=== PATIENT | female | born 1965 | race Caucasian/White ===

== ENCOUNTER 2019-10-18 16:56 | Emergency (ER) | payer OTHER, SELFPAY ==
--- NOTE | ~2019-10-18 | CT_ITS ---
EXAMINATION: CTA chest PE protocol DATE: 10/18/2019 20:58 INDICATION: Shortness of breath TECHNIQUE: Computed tomography angiography (CTA) of the chest was performed with 100 mL Omnipaque-350 intravenous contrast timed to evaluate the pulmonary arteries. Coronal maximum intensity projection 3D-reconstructions were created by the technologist. The dose-length product (DLP) was 735.48 mGy-cm. Automated exposure control and iterative reconstruction technique were employed. COMPARISON: None. FINDINGS: The pulmonary arteries are well-opacified. No pulmonary embolism is identified. There are p atchy bilateral airspace opacities. No pleural effusion or pneumothorax is identified. No pathologica lly enlarged thoracic lymph nodes are identified. The heart size is normal. There is mild thoracic sp ondylosis. IMPRESSION: 1. No pulmonary embolism identified. 2. Patchy bilateral airspace opacities which may reflect atelectasis or pneumonia. Reviewed, dictated and finalized at location A. IMPRESSION: 1. No pulmonary embolism identified. 2. Patchy bilateral airspace opacities which may reflect atelectasis or pneumon ia.
--- NOTE | ~2019-10-18 | XR_ITS ---
EXAMINATION: XR chest 2V DATE: 10/18/2019 18:30 INDICATION: Mid chest pain and shortness of breath TECHNIQUE: AP and lateral views of the chest are obtained. COMPARISON: 01/07/2019 FINDINGS: The lungs are free of acute opacities. There is no pleural effusion or pneumothorax. The ca rdiomediastinal silhouette is normal. There is moderate thoracic spondylosis. IMPRESSION: 1. No acute cardiopulmonary abnormality. Reviewed, dictated and finalized at location A.
--- NOTE | 2019-10-18 17:03 | ECG_ITS ---
Measurements Intervals [place] Rate: 70 P: 127 RI: 167 QRS: -18 QRSD: 95 T: -29 QT: 391 QTc: 422 Interpretive Statements SINUS OR ECTOPIC ATRIAL RHYTHM LOW QRS VOLTAGE- PRECORDIAL LEADS INCOMPLETE RIGHT BUNDLE BRANCH BLOCK T WAVE ABNORMALITY IN INFERIOR LEADS- CONSIDER ISCHEMIA ABNORMAL ECG Electronically Signed On 10-18-2019 20:54:46 CDT by Tad Cardenas D.O.
[2019-10-18 17:04] VITALS: BP 114/82; PULSE 68; RESP 18; TEMP 36.6; O2SAT 97
[2019-10-18 17:23] LABS: Basophils Percent Auto 0.4 % (0.2-1.2); Eosinophils Absolute Auto 0.1 K/mm3 (0-0.3); Eosinophils Percent Auto 1.5 % (0-4.4); Hematocrit 40.1 % (37.0-47.0); Immature Granulocyte Absolute 0.03 K/mm3 (0.00-0.031); Immature Granulocyte Percent A 0.4 % (0-0.5); Lymphocytes Absolute Auto 1.71 K/mm3 (0.9-3.2); Lymphocytes Percent Auto 21.5 % (18.3-44.2); Mean Corpuscular HGB Conc 34.9 g/dl (32-36); Mean Corpuscular Hemoglobin 29.7 pg (26-34); Mean Corpuscular Volume 85.1 fl (80-100); Mean Platelet Volume 10.5 fl (7.4-10.4); Monocytes Absolute Auto 0.5 K/mm3 (0.1-0.6); Neutrophils Absolute Auto 5.6 K/mm3 (1.3-6.7); Neutrophils Percent Auto 70.2 % (45.5-73.1); Platelet Count Result 278 k/mm3 (150-375); Red Blood Count 4.71 M/mm3 (4.2-5.4); Red Cell Distribution Width 12.5 % (11.5-14.5)
[2019-10-18 17:34] LABS: Anion Gap 12.1 mmol/L (7-16); Blood Urea Nitrogen 13 mg/dL (7-17); Calcium 9.9 mg/dL (8.4-10.2); Carbon Dioxide 27 mmol/L (22-30); Chloride 103 mmol/L (98-107); Estimated CRCL calculation 106 ml/min; Estimated Glomerular Filt Rate > 60; Glucose 124 mg/dL (65-105); Potassium 3.1 mmol/L (3.4-5.0); Sodium 139 mmol/L (137-145)
[2019-10-18 17:38] LABS: INR 0.9; Prothrombin Time 11.9 Seconds (11.1-14.7)
[2019-10-18 17:39] LABS: Partial Thromboplastin Time 24.3 SECONDS (22.3-36.8)
[2019-10-18 17:46] LABS: Troponin I < 0.012 ng/mL (0.000-0.034)
--- NOTE | 2019-10-18 19:03 | ED.CHESTPAIN ---
HPI - Chest Pain General Chief Complaint: Chest Pain Stated Complaint: Chest Pain, SOB Time Seen by Provider: 10/18/19 19:00 Source: patient Mode of arrival: ambulatory Limitations: no limitations History of Present Illness HPI narrative: Patient is a 54-year-old female who presents for evaluation of shortness of breath. Patient with recent lower extremity surgery by Dr. Pierre to remove bone spurs on her foot, has been on prophylactic anticoagulation but presents with 3-day history of worsening dyspnea. Patient denies fever, chills, cough or congestion. She denies chest pain. She states that she feels as if her throat is closing and cannot breathe. She denies cough or hemoptysis. Patient does not smoke. She has been compliant with her other medications. Patient does have a history of anxiety and panic attacks. Related Data Home Medications Medication Instructions Recorded Confirmed amitriptyline 25 mg tablet 25 mg PO ONCE 03/30/19 azelastine 0.15 % (205.5 mcg) 205.5 mcg NASAL DAILY 03/30/19 nasal spray levocetirizine 5 mg tablet 5 mg PO DAILY 03/30/19 doxycycline hyclate 20 mg tablet 20 mg PO Q12H 05/29/19 enoxaparin 10/18/19 Allergies Allergy/AdvReac Type Severity Reaction Status Date / Time lisinopril Allergy Mild Cough Verified 04/17/19 13:10 Review of Systems Review of Systems: Narrative: CONSTITUTIONAL: Denies fever, chills, or sweats. EYES: Denies visual changes, redness, or discharge. ENT: Denies rhinorrhea, congestion, sore throat, or otalgia. CARDIOVASCULAR: Denies chest pain, reports palpitations RESPIRATORY: Reports dyspnea, denies cough GASTROINTESTINAL: Denies abdominal pain, nausea, vomiting, or diarrhea. GENITOURINARY: Denies dysuria or hematuria. SKIN: Denies rash or itching. MUSCULOSKELETAL: Denies back pain, joint pain, or myalgia. NEUROLOGIC: Denies headache, numbness, or weakness. PSYCHIATRIC: Reports anxiety PMFSH Surgical History Surgical History (Updated 10/18/19 @ 19:34 by Tanya De Santiago MD) S/P hemorrhoidectomy Family History Family History (Updated 04/05/17 @ 12:06 by DOCTOR UNKNOWN) Mother Family history of blood dyscrasia Hypertension Family history of malignant neoplasm of kidney Cerebrovascular accident Sibling Family history of blood dyscrasia Father Hypertension Other Family history of allergic disorder Family history of arthritis Family history of cardiovascular disease Family history of malignant neoplasm Social History Social History (Reviewed 05/29/19 @ 13:00 by Anju Nobles [facility]) Smoking status: Never smoker Second hand tobacco smoke exposure: No Alcohol intake: current Substance use: never Substance use type: does not use Gender identity (if verbalized by the patient): Female Exam Narrative: Exam Narrative: GENERAL: Awake, alert, conversant, anxious appearing HEAD: Normocephalic, atraumatic. EYES: PERRLA and EOMI. ENT: Nares clear, no rhinorrhea or epistaxis. Mucous membranes moist. NECK: Supple. CHEST: Mild tachypnea, no respiratory distress, breathing even and non labored HEART: Regular rate, sinus rhythm ABDOMEN:Non distended, non tender EXTREMITIES: Normal range of motion. Splinting to right lower extremity. SKIN: Warm, dry, no rash. NEURO:No focal deficits. Alert and oriented x3 Course Vital Signs Vital signs: Vital Signs Temperature 36.6 C 10/18/19 17:04 Pulse Rate 68 10/18/19 17:04 Respiratory Rate 18 10/18/19 17:04 Blood Pressure 114/82 10/18/19 17:04 Pulse Oximetry 97 10/18/19 17:04 Temperature 36.6 C 10/18/19 17:04 Pulse Rate 68 10/18/19 17:04 Respiratory Rate 18 10/18/19 17:04 Blood Pressure 114/82 10/18/19 17:04 Pulse Oximetry 97 10/18/19 17:04 MDM - Chest Pain MDM Narrative Medical decision making narrative: Patient presented for shortness of breath, at the time of initial assessment ABCs are intact and vital signs are stable. Initial troponin i
[2019-10-18 20:43] LABS: D Dimer 0.48 ug/mL (<0.48)
[2019-10-18 21:01] LABS: NT Pro B Type Natriuretic Pept 221 PG/ML (5-100)
[2019-10-18 21:04] LABS: Troponin I < 0.012 ng/mL (0.000-0.034)
[2019-10-21 03:23] LABS: SARS-CoV-2 RNA PCR Negative
== END 2019-10-18 22:35 | disposition home or self-care (01) ==
PROVIDERS: Emergency Medicine; Emergency Provider Emergency Medicine; PCP Family Medicine
DX: J18.9 Pneumonia, unspecified organism (principal); Z20.828 Contact with and (suspected) exposure to other viral communicable diseases; Z98.890 Other specified postprocedural states
CPT/HCPCS: 36415; 71046; 71275; 80048; 83880; 84484; 85025; 85380; 85610; 85730; 87635; 93005; 96374; 99284; C9803; J2060; Q9967; U0003

== ENCOUNTER 2019-11-10 00:55 | Outpatient (CLI) | payer OTHER, SELFPAY ==
[2019-11-10 18:53] LABS: SARS-CoV-2 RNA PCR Negative
== END 2019-11-10 00:56 | disposition home or self-care (01) ==
LOC: ANHCOVIDDT 00:55
PROVIDERS: PCP Family Medicine; Visit Provider Internal Medicine Gastroenterology
DX: Z01.812 Encounter for preprocedural laboratory examination (principal); Z20.828 Contact with and (suspected) exposure to other viral communicable diseases
CPT/HCPCS: 87635; C9803; U0003

== ENCOUNTER 2019-11-12 01:11 | Day surgery (SDC) | payer OTHER, SELFPAY ==
[2019-11-03 13:54] VITALS: BMI 37.8
[2019-11-12 07:58] VITALS: BP 113/87; PULSE 76; RESP 20; TEMP 36.2; O2SAT 96
--- NOTE | 2019-11-12 08:04 | PM.HPGS ---
History of Present Illness History of Present Illness Consent: Risks, benefits, and alternatives have been discussed and questions answered. Patient agrees to proceed with procedure. Chief complaint: GERD Narrative: Nayely Andre is a 54 year old W female referred for EGD secondary to history of chronic cough which seemed to improve with PPI therapy. However this was stopped she had recurrent symptoms. Her cough appears to have dissipated but now she has tightness in her chest. She is using anti reflux measures. She has no dysphagia odynophagia no weight loss. She had allergy testing she is allergic to cats which she knew already. [facility] Past Medical History Medical History Achilles tendonitis Chronic insomnia Fatigue HLD (hyperlipidemia) HTN (hypertension) IFG (impaired fasting glucose) Pneumonia Pure hyperglyceridemia SOB (shortness of breath) Surgical History Surgical History S/P hemorrhoidectomy Family History Family History Mother Family history of blood dyscrasia Hypertension Family history of malignant neoplasm of kidney Cerebrovascular accident Sibling Family history of blood dyscrasia Father Hypertension Other Family history of allergic disorder Family history of arthritis Family history of cardiovascular disease Family history of malignant neoplasm Social History Social History Smoking status: Never smoker Second hand tobacco smoke exposure: No Alcohol intake: current Substance use: never Substance use type: does not use Gender identity (if verbalized by the patient): Female Sexual Orientation (if Verbalized by the Patient): Straight or Heterosexual Meds Home Medications and Allergies Home Medications Medication Instructions Recorded Confirmed Type amlodipine 10 mg tablet 10 mg PO DAILY #90 tablet 07/01/19 11/03/19 Rx hydrochlorothiazide 25 mg tablet 25 mg PO DAILY #30 tablet 09/30/19 11/03/19 Rx pantoprazole 40 mg tablet,delayed 40 mg PO QAM #30 tablet 10/23/19 11/03/19 Rx release losartan 100 mg tablet 100 mg PO DAILY #90 tablet 10/30/19 11/03/19 Rx alprazolam 0.5 mg PO PRN 11/03/19 11/03/19 History Allergies Allergy/AdvReac Type Severity Reaction Status Date / Time hydrocodone AdvReac Mild Anxiety Verified 11/12/19 07:56 lisinopril AdvReac Mild Cough Verified 11/12/19 07:56 Exam Const: Orientation/consciousness: patient oriented x3 Resp: Auscultation: clear to auscultation bilaterally Cardio: Rate: regular rate Rhythm: regular rhythm Heart sounds: no murmurs GI: GI Palp: Yes Soft to palpation, No Tenderness to palpation present (GI), Yes No hepatosplenomegaly present and No Palpable mass present Auscultation: normal bowel sounds Neuro: General: patient oriented x3 and no focal motor deficits Extrem: General: no pedal edema Assessment and Plan Additional Plan EGD for evaluation of chronic cough questionable reflux symptoms substernal noncardiac chest pain
[2019-11-12] MEDS: LACTATED RINGERS 1,000 ML 150 ML IV CONT (08:20)
--- NOTE | 2019-11-12 08:26 | WPDANESEPPF ---
Anes - Initial Pre Proc Eval Procedure: Operation Date: 11/12/19 08:30 Proposed Procedures p Esophagogastroduodenoscopy - Luis F Messina MD Date/Time: 11/12/19 08:26 Surgeon: Luis F Messina MD Pre Op Diagnosis: GERD Patient Data Age: 54 Gender: F Height: 5 ft 8 in Weight: 113 kg Last Vital Signs Temp 97.1 F L 11/12/19 07:58 Pulse 76 11/12/19 07:58 Resp 20 11/12/19 07:58 BP 113/87 11/12/19 07:58 Pulse Ox 96 11/12/19 07:58 Allergies Allergy/AdvReac Type Severity Reaction Status Date / Time hydrocodone AdvReac Mild Anxiety Verified 11/12/19 07:56 lisinopril AdvReac Mild Cough Verified 11/12/19 07:56 Home Medications Medication Instructions Recorded Confirmed Type amlodipine 10 mg tablet 10 mg PO DAILY #90 tablet 07/01/19 11/03/19 Rx hydrochlorothiazide 25 mg tablet 25 mg PO DAILY #30 tablet 09/30/19 11/03/19 Rx pantoprazole 40 mg tablet,delayed 40 mg PO QAM #30 tablet 10/23/19 11/03/19 Rx release losartan 100 mg tablet 100 mg PO DAILY #90 tablet 10/30/19 11/03/19 Rx alprazolam 0.5 mg PO PRN 11/03/19 11/03/19 History Patient hx anesthesia problems: none Family hx anesthesia problems: none PMFSH Past Medical History Medical History Achilles tendonitis Chronic insomnia Fatigue HLD (hyperlipidemia) HTN (hypertension) IFG (impaired fasting glucose) Pneumonia Pure hyperglyceridemia SOB (shortness of breath) Surgical History Surgical History S/P hemorrhoidectomy Family History Family History Mother Family history of blood dyscrasia Hypertension Family history of malignant neoplasm of kidney Cerebrovascular accident Sibling Family history of blood dyscrasia Father Hypertension Other Family history of allergic disorder Family history of arthritis Family history of cardiovascular disease Family history of malignant neoplasm Social History Social History Smoking status: Never smoker Second hand tobacco smoke exposure: No Alcohol intake: current Substance use: never Substance use type: does not use Gender identity (if verbalized by the patient): Female Sexual Orientation (if Verbalized by the Patient): Straight or Heterosexual Anes - Eval Final PreProcedure Day of Procedure 11/12/19 08:26 Patient weight: obese Heart: regular rate and rhythm Lungs: clear to auscultation Airway: Mallampati scale class II Neurological: alert and oriented Last oral intake: >/= 8 hours ASA classification: III Emergent: no Anesthetic plan: proceed Anesthesia type and monitoring: general GIVS and standard monitoring Informed Consent: The patient's anesthetic plan and its attendant risks and benefits were discussed with the patient/family/POA. Questions were solicited and answers provided to the satisfaction of the patient/family/POA.
[2019-11-12] MEDS: BENZOCAINE (*SP) 60 ML SPRAY CAN (HURRICAINE) 1 SPRAY MUCOUS MEM (08:41)
[2019-11-12 08:57] VITALS: BP 98/69; PULSE 71; RESP 17; O2SAT 97
[2019-11-12 09:07] VITALS: BP 106/63; PULSE 72; RESP 16; O2SAT 97
[2019-11-12 09:17] VITALS: BP 105/70; PULSE 62; RESP 18; O2SAT 98
== END 2019-11-12 09:45 | disposition home or self-care (01) ==
PROVIDERS: PCP Family Medicine; Visit Provider Internal Medicine Gastroenterology
PROC: 0DJ08ZZ Inspection of Upper Intestinal Tract, Via Natural or Artificial Opening Endoscopic (ICD-10-PCS; CPT 43235; principal; 2019-11-12 08:30)
DX: K21.0 Gastro-esophageal reflux disease with esophagitis (principal); K29.50 Unspecified chronic gastritis without bleeding; I10 Essential (primary) hypertension; E78.5 Hyperlipidemia, unspecified; E78.1 Pure hyperglyceridemia; E66.9 Obesity, unspecified; Z68.37 Body mass index [BMI] 37.0-37.9, adult
CPT/HCPCS: 43239; 87081; 88305; J2704; J7120

== ENCOUNTER 2019-11-19 21:34 | Emergency (ER) | payer OTHER, SELFPAY ==
[2019-11-19 21:36] VITALS: BP 119/68; PULSE 91; RESP 20; TEMP 36.2; O2SAT 100
--- NOTE | 2019-11-19 22:50 | ED.EXTPRO ---
HPI - Extremity Problem General Chief complaint: Extremity Problem,Nontraumatic Stated complaint: possible dvt? Time Seen by Provider: 11/19/19 21:47 History of Present Illness HPI Narrative: Patient is a 54-year-old female who presents ER with cramping behind her right calf. Symptoms began earlier in the day and progressively worsened. No swelling or redness noted to the leg. Patient reports she had surgery on a bone spur about 5 weeks ago and she has been in a boot since then. She took Lovenox for 3 weeks but has not been on it for the last 2 weeks. She is having no chest pain or shortness of breath. Related Data Home Medications Medication Instructions Recorded Confirmed alprazolam 0.5 mg PO PRN 11/03/19 11/03/19 Allergies Allergy/AdvReac Type Severity Reaction Status Date / Time hydrocodone AdvReac Mild Anxiety Verified 11/18/19 13:09 lisinopril AdvReac Mild Cough Verified 11/18/19 13:09 Review of Systems Constitutional: Constitutional: Denies chills, Denies fever(s) and Denies weakness Cardiovascular: Cardiovascular: Denies chest pain, Denies rapid heart rate and Denies radiating jaw, neck or arm pain Respiratory: Respiratory: Denies cough and Denies dyspnea Musculoskeletal: Musculoskeletal: Denies arthralgias, Denies joint swelling and Reports muscle cramps Comments: Right calf pain Integumentary/Breasts: Skin/Breast: Denies erythema and Denies rash PMFSH Past Medical History Medical History (Updated 11/19/19 @ 22:53 by Connor Bunch MD) Achilles tendonitis Chronic insomnia Fatigue Functional dyspepsia HLD (hyperlipidemia) HTN (hypertension) IFG (impaired fasting glucose) Pneumonia Pure hyperglyceridemia SOB (shortness of breath) Surgical History Surgical History S/P hemorrhoidectomy Social History Social History Smoking status: Never smoker Second hand tobacco smoke exposure: No Alcohol intake: current Substance use: never Substance use type: does not use Gender identity (if verbalized by the patient): Female Exam Narrative: Exam Narrative: GENERAL: Well-appearing, well-nourished, and in no acute distress. HEAD: Normocephalic, atraumatic. CHEST: Clear to auscultation. No respiratory distress. HEART: Regular rate and rhythm. Normal peripheral pulses. EXTREMITIES: Normal range of motion. Tender palpation posterior right calf near the popliteal fossa. Right lower extremity immobilized in walking boot. SKIN: Warm, dry, no rash. NEURO: lert and oriented x3. Course Course Emergency Course: Patient will receive a treatment of Lovenox. I have arranged for an ultrasound in the morning and results will be sent to PCPs office. Vital Signs Vital signs: Vital Signs Temperature 97.1 F L 11/19/19 21:36 Pulse Rate 91 11/19/19 21:36 Respiratory Rate 20 11/19/19 21:36 Blood Pressure 119/68 11/19/19 21:36 Pulse Oximetry 100 11/19/19 21:36 Temperature 97.1 F L 11/19/19 21:36 Pulse Rate 91 11/19/19 21:36 Respiratory Rate 20 11/19/19 21:36 Blood Pressure 119/68 11/19/19 21:36 Pulse Oximetry 100 11/19/19 21:36 Discharge Plan Discharge Clinical Impression: Calf pain Patient Disposition: Home, Self-Care Condition: Stable Instructions: Deep Vein Thrombosis (ED) Additional Instructions: You have been given Lovenox. It is possible you have a DVT and an ultrasound has been arranged for 7:00 a.m. in the radiology department. Please arrive 15 minutes prior to your appointment to fill paperwork. Return to the ER immediately if you have chest pain or shortness of breath, you lose consciousness, or have any additional concerns. Your results will be sent to your primary care doctor's office. Please contact them to obtain results. Prescriptions: No Action amitriptyline 10 mg tablet 10 mg PO ONCE Qty: 30 RF: 5 alprazola
[2019-11-19] MEDS: ENOXAPARIN 120 MG/0.8 ML SYRINGE 115 MG SUB-Q (22:51)
[2019-11-19 23:14] VITALS: BP 134/75; PULSE 79; RESP 16; TEMP 36.6; O2SAT 98
== END 2019-11-19 23:15 | disposition home or self-care (01) ==
PROVIDERS: Emergency Provider Emergency Medicine; PCP Family Medicine
DX: M79.661 Pain in right lower leg (principal); E78.5 Hyperlipidemia, unspecified; I10 Essential (primary) hypertension; K30 Functional dyspepsia; F51.04 Psychophysiologic insomnia
CPT/HCPCS: 96372; 99283; J1650

== ENCOUNTER 2019-11-20 07:21 | Outpatient (CLI) | payer OTHER, SELFPAY ==
--- NOTE | ~2019-11-20 | US_ITS ---
EXAMINATION: US venous doppler LE EXAM DATE: 11/20/2019 08:01 INDICATION: Calf pain. Recent foot surgery. TECHNIQUE: Multiple grayscale, color flow and Doppler images of the right lower extremity deep venous system obtained and reviewed. There is no prior study for comparison. FINDINGS: RIGHT SIDE Common femoral: -------- Normal. Profunda femoral: ------- Normal. Femoral: Normal. Popliteal: Normal. Posterior tibial: --------- Normal. Peroneal: Normal. Gastrocnemius: Paired, both thrombosed. Soleus: Not visualized. Greater saphenous: ----- Normal. Lesser saphenous: ------ Not visualized. IMPRESSION: 1. Positive for right gastrocnemius DVT. I discussed DVT with patient's primary care physician Rolo Cadena for follow-up, had been arranged by emergency room physician, conversation at 11/20/2019 08:15 CDT. Reviewed, dictated and finalized at location A. IMPRESSION: 1. Positive for right gastrocnemius DVT. I discussed DVT with patient's primary care physician Rolo Cadena for follow- up, had been arranged by emergency room physician, conversation at 11/20/2019 08 :15 CDT.
== END 2019-11-20 07:22 | disposition home or self-care (01) ==
PROVIDERS: PCP Family Medicine; Visit Provider Emergency Medicine
DX: I82.461 Acute embolism and thrombosis of right calf muscular vein (principal)
CPT/HCPCS: 93971

== ENCOUNTER 2020-03-12 01:51 | Outpatient (CLI) | payer OTHER, SELFPAY ==
[2020-03-12 18:59] LABS: SARS-CoV-2 RNA PCR Negative
== END 2020-03-12 01:52 | disposition home or self-care (01) ==
LOC: ANHCOVIDDT 01:52
PROVIDERS: Physician Assistant; PCP Family Medicine; Visit Provider Internal Medicine Gastroenterology
DX: Z01.812 Encounter for preprocedural laboratory examination (principal); Z20.828 Contact with and (suspected) exposure to other viral communicable diseases
CPT/HCPCS: 87635; C9803; U0003

== ENCOUNTER 2020-03-14 15:12 | Outpatient (CLI) | payer OTHER, SELFPAY ==
--- NOTE | ~2020-03-14 | US_ITS ---
EXAMINATION: US venous doppler LE RT EXAM DATE: 03/14/2020 15:48 INDICATION: I82.461 - Acute embolism and thrombosis of right calf muscular vein. TECHNIQUE: Multiple grayscale, color flow and Doppler images of the right lower extremity deep venous system were obtained and reviewed. Comparison is made to prior examination from 11/20/2019. FINDINGS: The right common femoral, femoral and profunda veins demonstrate normal color flow, respira tory variation, augmentation and compressibility. Compressibility, color flow confirmed within the r ight popliteal, posterior tibial, peroneal, and greater saphenous veins. IMPRESSION: 1. No right lower extremity deep venous thrombosis. Reviewed, dictated and finalized at location B. INSPECTOR
== END 2020-03-14 15:13 | disposition home or self-care (01) ==
PROVIDERS: PCP Family Medicine; Visit Provider Family Medicine
DX: I82.461 Acute embolism and thrombosis of right calf muscular vein (principal)
CPT/HCPCS: 93971

== ENCOUNTER 2020-03-15 01:52 | Day surgery (SDC) | payer OTHER, SELFPAY ==
[2020-03-09 13:28] VITALS: BMI 39.2
[2020-03-15 12:46] VITALS: BP 134/89; PULSE 91; RESP 17; TEMP 36.8; O2SAT 98; BMI 38.0
[2020-03-15] MEDS: LACTATED RINGERS 1,000 ML 150 ML IV CONT (12:55)
--- NOTE | 2020-03-15 13:13 | WPDANESEPPF ---
Anes - Initial Pre Proc Eval Procedure: Operation Date: 03/15/20 15:00 Proposed Procedures p Screening Colonoscopy - Brian Aldana MD Date/Time: 03/15/20 13:13 Surgeon: Brian Aldana MD Pre Op Diagnosis: Hx Colon Polyps Patient Data Age: 54 Gender: F Height: 1.73 m Weight: 113.5 kg Last Vital Signs Temp 36.8 C 03/15/20 12:46 Pulse 91 03/15/20 12:46 Resp 17 03/15/20 12:46 BP 134/89 03/15/20 12:46 Pulse Ox 98 03/15/20 12:46 Allergies Allergy/AdvReac Type Severity Reaction Status Date / Time hydrocodone AdvReac Mild Anxiety Verified 03/15/20 12:43 lisinopril AdvReac Mild Cough Verified 03/15/20 12:43 Home Medications Medication Instructions Recorded Confirmed Type hydrochlorothiazide 25 mg tablet 25 mg PO DAILY #30 tablet 09/30/19 03/09/20 Rx pantoprazole 40 mg tablet,delayed 40 mg PO QAM #30 tablet 10/23/19 03/09/20 Rx release losartan 100 mg tablet 100 mg PO DAILY #90 tablet 10/30/19 03/09/20 Rx rivaroxaban 20 mg tablet 20 mg PO DAILY #30 tablet 11/20/19 03/09/20 Rx amlodipine 10 mg tablet 10 mg PO DAILY #90 tablet 12/18/19 03/09/20 Rx Patient hx anesthesia problems: none Family hx anesthesia problems: none PMFSH Past Medical History Medical History (Updated 03/14/20 @ 09:59 by Juvenal Sousa DO) Achilles tendonitis Adenomatous colon polyp Chronic insomnia Deep vein thrombosis (DVT) of calf muscle vein of right lower extremity Fatigue Functional dyspepsia Globus pharyngeus HLD (hyperlipidemia) HTN (hypertension) IFG (impaired fasting glucose) Obese Pneumonia Pure hyperglyceridemia SOB (shortness of breath) Surgical History Surgical History S/P hemorrhoidectomy Family History Family History Mother Family history of blood dyscrasia Hypertension Family history of malignant neoplasm of kidney Cerebrovascular accident Sibling Family history of blood dyscrasia Father Hypertension Other Family history of allergic disorder Family history of arthritis Family history of cardiovascular disease Family history of malignant neoplasm Social History Social History (Updated 02/23/20 @ 09:55 by Lulú Guzman) Smoking status: Never smoker Second hand tobacco smoke exposure: No Alcohol intake: current Substance use: never Substance use type: does not use Living arrangements: with family Gender identity (if verbalized by the patient): Female Spiritual care concerns: No Anes - Eval Final PreProcedure Day of Procedure 03/15/20 13:13 Patient weight: obese Heart: regular rate and rhythm Lungs: clear to auscultation and normal air movement Airway: Mallampati scale class II Neurological: alert and oriented Last oral intake: >/= 8 hours ASA classification: III Emergent: no Anesthetic plan: proceed Anesthesia type and monitoring: general GIVS and standard monitoring Informed Consent: The patient's anesthetic plan and its attendant risks and benefits were discussed with the patient/family/POA. Questions were solicited and answers provided to the satisfaction of the patient/family/POA.
--- NOTE | 2020-03-15 13:44 | WPDHPUPDATE1 ---
History and Physical Update Update Date/Time: 03/15/20 13:44 History and Physical has been reviewed, including an updated exam of the patient. There are NO changes in the patient's condition. Risks, benefits, and alternatives have been discussed and questions answered. Patient agrees to proceed with procedure.
[2020-03-15 14:01] VITALS: BP 118/77; PULSE 82; RESP 20; O2SAT 95
[2020-03-15 14:11] VITALS: BP 114/84; PULSE 74; RESP 15; O2SAT 99
[2020-03-15 14:21] VITALS: BP 115/75; PULSE 67; RESP 13; O2SAT 100
== END 2020-03-15 14:38 | disposition home or self-care (01) ==
PROVIDERS: PCP Family Medicine; Visit Provider Internal Medicine Gastroenterology
PROC: 0DJD8ZZ Inspection of Lower Intestinal Tract, Via Natural or Artificial Opening Endoscopic (ICD-10-PCS; CPT 45378; principal; 2020-03-15 15:00)
DX: Z12.11 Encounter for screening for malignant neoplasm of colon (principal); K57.30 Diverticulosis of large intestine without perforation or abscess without bleeding; K64.8 Other hemorrhoids; M76.60 Achilles tendinitis, unspecified leg; F51.04 Psychophysiologic insomnia; Z86.718 Personal history of other venous thrombosis and embolism; R53.83 Other fatigue; R10.13 Epigastric pain; F45.8 Other somatoform disorders; E78.5 Hyperlipidemia, unspecified; I10 Essential (primary) hypertension; R73.01 Impaired fasting glucose; E78.1 Pure hyperglyceridemia; E66.9 Obesity, unspecified; Z68.38 Body mass index [BMI] 38.0-38.9, adult
CPT/HCPCS: 45378; J2704; J7120

== ENCOUNTER → 2020-07-18 10:35 | Outpatient (CLI) | payer OTHER, SELFPAY ==
--- NOTE | ~2020-07-18 | MM_ITS ---
EXAMINATION: MM screening maribell BI w gopi HISTORY: Screening mammogram TECHNIQUE: Craniocaudal and mediolateral oblique 3-D tomosynthesis images were obtained and synthetic 2-D images were generated. CAD analysis was submitted and interpreted. COMPARISON: 02/10/2019 bilateral digital screening mammogram 01/02/2018 diagnostic right mammogram and limited right breast ultrasound 12/2017 bilateral digital screening mammogram BREAST PARENCHYMAL COMPOSITION: There are scattered areas of fibroglandular density. FINDINGS: There is no evidence of suspicious mass, calcification, or architectural distortion to sugg est malignancy in either breast. There has been no suspicious interval change. IMPRESSION: 1. No mammographic evidence of malignancy. 2. Recommend routine screening mammography in one year. BI-RADS Category 1: Negative Reviewed, dictated and finalized at location A.
== END ==
PROVIDERS: PCP Family Medicine; Visit Provider Family Medicine
DX: Z12.31 Encounter for screening mammogram for malignant neoplasm of breast (principal)
CPT/HCPCS: 77063; 77067

== ENCOUNTER → 2020-08-11 09:52 | Outpatient (CLI) | payer OTHER, SELFPAY ==
--- NOTE | ~2020-08-11 | XR_ITS ---
EXAMINATION: XR chest 2V EXAM DATE: 08/11/2020 10:20 INDICATION: R05 - Cough. TECHNIQUE: Frontal and lateral projections of the chest obtained and reviewed. Comparison is made to prior examination from 10/18/2019. FINDINGS: The lungs are clear. There are no pleural effusions. The cardiomediastinal silhouette is within normal limits. There is no pneumothorax suspected. The bones and soft tissues are unremarkab le. IMPRESSION: Unremarkable chest x-ray exam. Reviewed, dictated and finalized at location A.
== END ==
PROVIDERS: PCP Family Medicine; Visit Provider Physician Assistant
DX: R05 Cough (principal)
CPT/HCPCS: 71046

== ENCOUNTER 2020-10-07 20:16 | Emergency (ER) | payer OTHER, SELFPAY ==
--- NOTE | ~2020-10-07 | XR_ITS ---
EXAMINATION: XR chest 2V DATE: 10/07/2020 21:24 INDICATION: Shortness of breath, cough and headache TECHNIQUE: PA and lateral views of the chest were obtained. COMPARISON: Chest radiograph dated 08/11/[address] dated 10/18/2019 FINDINGS: Unchanged chronic band of discoid atelectasis/scarring at the lingula. Mild increased infrahilar opac ities with bronchial wall thickening best appreciated on the lateral projection. No other airspace op acities, pulmonary edema, pleural effusion or pneumothorax. The cardiomediastinal silhouette is chaz l. Mild thoracic spondylosis. IMPRESSION: 1. Mild infrahilar opacities with bronchial wall thickening consistent with bronchitis or reactive ai rway disease/asthma possibly with associated mild/early pneumonia. Reviewed, dictated and finalized at location A. IMPRESSION: 1. Mild infrahilar opacities with bronchial wall thickening consistent with bro nchitis or reactive airway disease/asthma possibly with associated mild/early p neumonia.
[2020-10-07 20:50] VITALS: BP 137/90; PULSE 110; RESP 20; TEMP 36.5; O2SAT 100
--- NOTE | 2020-10-07 20:56 | ECG_ITS ---
Measurements Intervals [place] Rate: 98 P: 51 IL: 146 QRS: 14 QRSD: 93 T: 26 QT: 353 QTc: 451 Interpretive Statements SINUS RHYTHM POSSIBLE LEFT ATRIAL ENLARGEMENT INCOMPLETE RIGHT BUNDLE BRANCH BLOCK LOW QRS VOLTAGE IN PRECORDIAL LEADS NONSPECIFIC ST & T-WAVE ABNORMALITY- ANTEROLAT/INF LEADS BASELINE ARTIFACT- I, II, III, AVL BORDERLINE ECG Electronically Signed On 10-08-2020 7:10:19 CDT by Tad Cardenas D.O.
[2020-10-07 21:21] LABS: Basophils Absolute Auto 0.1 K/mm3 (0.0-0.1); Basophils Percent Auto 0.5 % (0.2-1.2); Eosinophils Absolute Auto 0.3 K/mm3 (0-0.3); Eosinophils Percent Auto 2.1 % (0-4.4); Hematocrit 42.8 % (37.0-47.0); Hemoglobin 14.8 g/dL (12.0-15.0); Immature Granulocyte Absolute 0.07 K/mm3 (0.00-0.031); Immature Granulocyte Percent A 0.5 % (0-0.5); Lymphocytes Percent Auto 20.6 % (18.3-44.2); Mean Corpuscular HGB Conc 34.6 g/dl (32-36); Mean Corpuscular Hemoglobin 29.7 pg (26-34); Mean Corpuscular Volume 85.8 fl (80-100); Mean Platelet Volume 10.3 fl (7.4-10.4); Monocytes Absolute Auto 0.9 K/mm3 (0.1-0.6); Monocytes Percent Auto 5.8 % (2.6-8.5); Neutrophils Absolute Auto 10.6 K/mm3 (1.3-6.7); Neutrophils Percent Auto 70.5 % (45.5-73.1); Platelet Count Result 290 k/mm3 (150-375); Red Blood Count 4.99 M/mm3 (4.2-5.4); Red Cell Distribution Width 12.8 % (11.5-14.5)
[2020-10-07 21:31] LABS: Anion Gap 12 mmol/L (8-16); Blood Urea Nitrogen 15 mg/dL (7-17); Calcium 10.1 mg/dL (8.4-10.2); Carbon Dioxide 29 mmol/L (22-30); Chloride 99 mmol/L (98-107); Estimated CRCL calculation 74 ml/min; Estimated Glomerular Filt Rate 58; Glucose 129 mg/dL (65-110); Potassium 3.2 mmol/L (3.4-5.0); Sodium 140 mmol/L (137-145)
[2020-10-07 23:01] VITALS: BP 121/88; PULSE 89; RESP 16; O2SAT 97
[2020-10-07 23:16] VITALS: BP 139/76; PULSE 98; RESP 24; O2SAT 98
[2020-10-07 23:31] VITALS: BP 133/83; PULSE 86; RESP 18; O2SAT 98
[2020-10-07 23:46] VITALS: BP 106/69; PULSE 89; RESP 13; O2SAT 99
--- NOTE | 2020-10-07 23:55 | ED.SOB ---
HPI - SOB/Dyspnea General Chief Complaint: Shortness of Breath/Dyspnea Stated Complaint: Sob Time Seen by Provider: 10/07/20 21:57 Source: patient and family Mode of arrival: ambulatory Limitations: no limitations History of Present Illness HPI Narrative: 55-year-old female Patient and her state that every time she gets a cold it goes into her chest and she gets pneumonia and she did want a wait for that to happen this time She has been feeling bad for about 4 days with subjective fevers and body aches and headache then started having a significant cough today along with some mild shortness of breath where she feels like every fourth breath is not deep She does not have urinary symptoms, diarrhea, abdominal pain Notably she has been vaccinated against Covid Related Data Home Medications Medication Instructions Recorded Confirmed melatonin 10 mg tablet 10 mg PO QHS 05/23/20 09/13/20 Allergies Allergy/AdvReac Type Severity Reaction Status Date / Time hydrocodone AdvReac Mild Anxiety Verified 05/23/20 10:20 lisinopril AdvReac Mild Cough Verified 05/23/20 10:20 Review of Systems Review of Systems: All systems reviewed & are unremarkable except as noted in HPI and below Constitutional: Constitutional: Reports no additional constitutional complaints, Reports chills, Reports fatigue, Reports fever(s), Denies headache(s) and Reports weakness Eyes: Eyes: Reports no additional eye complaints and Denies change in vision ENT: Denies headache(s), Reports nasal congestion and Denies sore throat Cardiovascular: Cardiovascular: Denies chest pain and Denies dyspnea Respiratory: Respiratory: Reports chest congestion, Reports cough and Reports dyspnea Gastrointestinal: Gastrointestinal: Denies abdominal pain, Denies diarrhea and Denies vomiting Genitourinary: Genitourinary: Denies urinary frequency and Denies dysuria Musculoskeletal: Musculoskeletal: Denies deformity, Denies arthralgias, Denies joint swelling and Denies numbness Integumentary/Breasts: Skin/Breast: Denies rash and Denies wounds Neurologic: Reports headache(s), Denies focal weakness and Denies numbness Psychiatric: Psychiatric: Reports no additional psychiatric complaints Endocrine: Endocrine: Reports no additional endocrine complaints Hematologic/Lymphatic: Hematologic/Lymphatic: Reports no additional hematologic/lymphatic complaints Allergic/Immunologic: Allergic/Immunologic: Reports no additional allergic/immunologic complaints [facility] Past Medical History Medical History (Updated 07/17/21 @ 00:00 by Nitesh Millan MD) Achilles tendonitis Adenomatous colon polyp Chronic insomnia Deep vein thrombosis (DVT) of calf muscle vein of right lower extremity Fatigue Functional dyspepsia Globus pharyngeus HLD (hyperlipidemia) HTN (hypertension) IFG (impaired fasting glucose) Obese Pneumonia Pure hyperglyceridemia SOB (shortness of breath) Surgical History Surgical History S/P hemorrhoidectomy Family History Family History Mother Family history of blood dyscrasia Hypertension Family history of malignant neoplasm of kidney Cerebrovascular accident Sibling Family history of blood dyscrasia Father Hypertension Other Family history of allergic disorder Family history of arthritis Family history of cardiovascular disease Family history of malignant neoplasm Social History Social History (Updated 09/13/20 @ 09:03 by Twila Fox) Smoking status: Never smoker Second hand tobacco smoke exposure: No Alcohol intake: current Alcohol use details: rare Substance use: never Substance use type: does not use Gender identity (if verbalized by the patient): Female Spiritual care concerns: No Exam Const: General: cooperative, no acute distress and alert Nutritional Appearance: obese Orientation/co
[2020-10-08 00:10] VITALS: BP 121/64; PULSE 95; RESP 16; O2SAT 100
== END 2020-10-08 00:12 | disposition home or self-care (01) ==
PROVIDERS: Emergency Medicine; Emergency Provider Emergency Medicine; PCP Family Medicine
DX: J18.9 Pneumonia, unspecified organism (principal); E78.5 Hyperlipidemia, unspecified; I10 Essential (primary) hypertension; E66.9 Obesity, unspecified; Z68.38 Body mass index [BMI] 38.0-38.9, adult; Z86.718 Personal history of other venous thrombosis and embolism; Z86.010 Personal history of colon polyps; I45.10 Unspecified right bundle-branch block; R94.31 Abnormal electrocardiogram [ECG] [EKG]
CPT/HCPCS: 36415; 71046; 80048; 85025; 93005; 99284

== ENCOUNTER → 2020-10-08 06:40 | Outpatient (CLI) | payer OTHER, SELFPAY ==
[2020-10-08 16:46] LABS: SARS-CoV-2 RNA PCR Negative
== END ==
PROVIDERS: Physician Assistant; PCP Family Medicine; Visit Provider Family Medicine
DX: R05 Cough (principal); Z20.822 Contact with and (suspected) exposure to COVID-19
CPT/HCPCS: C9803; U0003; U0005

== ENCOUNTER 2020-11-21 12:29 | Outpatient (CLI) | payer OTHER, SELFPAY ==
--- NOTE | 2020-11-21 14:35 | P.PCNPFT_ITS ---
PFT Procedure Performed PFT Procedure Performed Spirometry with Pre/Post Bronchodilator Plethysmography (Lung Vol) Diffusing Cap (DLCO) Flow Vol Loop PFT Interpretation This is a pulmonary function test with pre and post-bronchodilator spirometry, plethysmography and diffusing capacity. The test was performed and results interpreted in accordance with the 2019 and 2005 ATS/ERS Task Force guidelines respectively using the Global Lung Function Initiative-2012 reference equations. Patient demonstrated good effort and cooperation. Reproducibility criteria were met. The quality of the pre bronchodilator spirometry maneuver was Grade A and post bronchodilator spirometry maneuver was Grade A. Findings: Spirometry: Contour the inspiratory and expiratory flow tracing are normal. The pre bronchodilator FVC is 3.37, 88% predicted. The pre bronchodilator FEV1 is 2.68 L, 95% predicted. The FEV1: FVC ratio was 85%. The post bronchodilator FVC is 3.48 L, representing a 3% increase. The post bronchodilator FEV1 is 3.02 L, representing a 6% increase. Plethysmography: The total lung capacity is 8.80 L, 155% predicted. The functional residual capacity is 6.05 L, 188% predicted. The residual volume is 3.48 L, 166% predicted. Diffusing capacity: The absolute diffusion capacity is 21.4, 90% predicted g rade could diffusion capacity corrected for alveolar volume is 4.51, 104% predicted. Impression: The spirometry is normal without evidence of an obstructive abnormality. There is no significant improvement after inhaling a single dose of albuterol. The Total lung capacity, functional residual capacity and residual volume are symmetrically increased. This is an abnormal but nonspecific lung vol ume pattern. The diffusing capacity is normal. There are no prior studies for comparison
== END 2020-11-21 12:30 | disposition home or self-care (01) ==
PROVIDERS: PCP Family Medicine; Visit Provider Physician Assistant
DX: J18.9 Pneumonia, unspecified organism (principal)
CPT/HCPCS: 94060; 94726; 94729

== ENCOUNTER 2021-08-03 08:49 | Outpatient (CLI) | payer BC, SELFPAY | END 2021-08-03 08:50 | disposition home or self-care (01) | LOC: ANHAUDASC 08:50 | PROVIDERS: PCP Family Medicine; Visit Provider Family Medicine | DX: H90.3 Sensorineural hearing loss, bilateral (principal) | CPT/HCPCS: 92557; 92567 ==

== ENCOUNTER → 2021-09-18 10:01 | Outpatient (CLI) | payer BC, SELFPAY ==
--- NOTE | ~2021-09-18 | XR_ITS ---
XR shoulder RT min 2V DATE: 09/18/2021 10:33 INDICATION: Right shoulder pain TECHNIQUE: 4 views COMPARISON: None FINDINGS: No fracture or dislocation, periosteal reaction or bone destruction or abnormal soft tissue calcification. There is mild degenerative change at the right acromioclavicular joint. IMPRESSION: Mild right acromioclavicular joint degenerative change Reviewed, dictated and finalized at location B.
== END ==
PROVIDERS: PCP Family Medicine; Visit Provider Family Medicine
DX: M19.011 Primary osteoarthritis, right shoulder (principal)
CPT/HCPCS: 73030

== ENCOUNTER → 2021-11-21 11:24 | Outpatient (CLI) | payer BC, SELFPAY ==
--- NOTE | ~2021-11-21 | MM_ITS ---
EXAMINATION: MM screening [facility] BI w gopi HISTORY: Screening mammogram TECHNIQUE: Craniocaudal and mediolateral oblique 3-D tomosynthesis images were obtained and synthetic 2-D images were generated. CAD analysis was submitted and interpreted. COMPARISON: 07/18/2020, 02/10/2019, 01/02/2018, 12/26/2017 BREAST PARENCHYMAL COMPOSITION: There are scattered areas of fibroglandular density. FINDINGS: There is a stable cyst in the upper outer quadrant of the left breast. There is no suspicio us mass, calcification, or architectural distortion to suggest malignancy in either breast. There has been no suspicious interval change. IMPRESSION: 1. No mammographic evidence of malignancy. 2. Recommend routine screening mammography in one year. BI-RADS Category 2: Benign finding(s). Reviewed, dictated and finalized at location A.
== END ==
PROVIDERS: PCP Family Medicine; Visit Provider Family Medicine
DX: Z12.31 Encounter for screening mammogram for malignant neoplasm of breast (principal)
CPT/HCPCS: 77063; 77067

== ENCOUNTER 2022-03-09 12:57 | Outpatient (CLI) | payer BC, SELFPAY ==
--- NOTE | ~2022-03-09 | XR_ITS ---
EXAMINATION: XR barium swallow modified DATE: 03/09/2022 13:55 INDICATION: Cough, globus TECHNIQUE: Modified barium esophagram was performed by myself who administered fluoroscopy, in conju nction with speech pathologist who administered barium in varying consistencies as per speech patholo gist documentation. This was recorded on tape. A single fluoroscopic spot image was recorded. Fluoros copy exposure time was 1.5 minutes. The DAP for this procedure was 1.125 Gycm2. FINDINGS: Oral stage: Adequate function. Pharyngeal phase: Adequate function. Laryngeal penetration: None. Aspiration: None. Laryngeal sensitivity: Present. IMPRESSION: Normal modified barium swallow. Please refer to speech pathologist findings and specific feeding recommendations. Reviewed, dictated and finalized at location A. RNAL WHOLESALER
--- NOTE | 2022-03-09 14:55 | REHSTMBS ---
Assessment and note entered by Andie Cortés, GRAD[employer] 1 6 TUT[employer] Modified Barium Swallow Evaluation ST Clinical Summary MODIFIED BARIUM SWALLOW STUDY This patient was seen for a Modified Barium Swallow study at the request of her physician. Patient reported a history of at least six years of waking up with a cough and having a feeling that there is something in her throat that she needs to swallow. She was told that she swallows two times consistently and she did not realize that but stated that she thinks she does this because she feels there is always residue in her throat even after swallowing. She denies allergies and reflux as a cause of her complaints. Patient was presented with graduated amounts of thin liquid contrast medium, pudding mixed with semi-solid ocntrast medium, and fruit and a piece of cracker, both coated with the semi-solid mixture. Patient exhibited quick swallows but was noted to swallow two to three times per presentation in an effort to remove residue although at times, there was no lingual or pharyngeal residue following the first swallow. Results indicate this patient's swallowing skills are within normal limits. She is referred back to her physician for further assessment of her complaints. Thank you for this referral.
== END 2022-03-09 12:58 | disposition home or self-care (01) ==
PROVIDERS: PCP Family Medicine; Visit Provider Family Medicine
DX: R05.9 Cough, unspecified (principal); R09.89 Other specified symptoms and signs involving the circulatory and respiratory systems
CPT/HCPCS: 92611

== ENCOUNTER 2022-06-01 12:48 | Outpatient (CLI) | payer BC, SELFPAY ==
--- NOTE | ~2022-06-01 | MR_ITS ---
MRI of the right shoulder Technique: Axial proton-density fat-sat images, coronal proton density fat-sat and T2 fat-sat images, and sagittal T1-weighted and T2 fat-sat images were acquired. Clinical History: Pain Findings: There is moderate AC joint degenerative change with small subacromial spur present. Coracoc lavicular, coracoacromial, and coracohumeral ligaments appear intact. Supraspinatus and infraspinatus tendons are intact, with minimal tendinosis. Subscapularis tendon is intact, with minimal tendinosis. Tendon of long head of the biceps is intact. No labral tear identified. Inferior glenohumeral ligament is intact. No degenerative change or effusion of the glenohumeral join t. No fluid distention of the subacromial/subdeltoid bursa. No muscle atrophy or edema. Impression: Moderate AC joint degenerative change. Minimal rotator cuff tendinosis. Reviewed, dictated and finalized at [facility]. ER PRESS PUMPER Impression: Moderate AC joint degenerative change. Minimal rotator cuff tendinosis.
== END 2022-06-01 12:49 | disposition home or self-care (01) ==
PROVIDERS: PCP Family Medicine; Visit Provider Nurse Practitioner
DX: M25.511 Pain in right shoulder (principal); M77.8 Other enthesopathies, not elsewhere classified
CPT/HCPCS: 73221

== ENCOUNTER → 2022-11-22 10:04 | Outpatient (CLI) | payer BC, SELFPAY ==
--- NOTE | ~2022-11-22 | MM_ITS ---
EXAMINATION: MM screening [facility] BI w gopi HISTORY: Screening mammogram, family history of breast cancer in her mother. TECHNIQUE: Craniocaudal and mediolateral oblique 3-D tomosynthesis images were obtained and synthetic 2-D images were generated. CAD analysis was submitted and interpreted. COMPARISON: 11/21/2021, 07/18/2020, 02/10/2019 BREAST PARENCHYMAL COMPOSITION: There are scattered areas of fibroglandular density. FINDINGS: No suspicious mass, calcification, or architectural distortion are identified in either jeffery ast to suggest malignancy. There has been no suspicious interval change. IMPRESSION: 1. No mammographic evidence of malignancy. 2. Recommend routine screening mammography in one year. BI-RADS Category 1: Negative Reviewed, dictated and finalized at location L.
== END ==
PROVIDERS: PCP Family Medicine; Visit Provider Family Medicine
DX: Z12.31 Encounter for screening mammogram for malignant neoplasm of breast (principal)
CPT/HCPCS: 77063; 77067

== ENCOUNTER 2022-12-23 08:23 | Emergency (ER) | payer BC, SELFPAY ==
--- NOTE | ~2022-12-23 | XR_ITS ---
EXAMINATION: XR chest 2V DATE: 12/23/2022 09:07 INDICATION: Cough and shortness of breath TECHNIQUE: PA and lateral views of the chest are obtained. COMPARISON: 10/07/2020 FINDINGS: The lungs are free of acute opacities. No pleural effusion or pneumothorax. The cardiomedia stinal silhouette is normal. There is mild thoracic spondylosis. IMPRESSION: 1. No acute cardiopulmonary abnormality. Reviewed, dictated and finalized at location F.
--- NOTE | ~2022-12-23 | CT_ITS ---
EXAMINATION: CT diagnostic chest wo con DATE: 12/23/2022 10:32 INDICATION: Cough TECHNIQUE: Computed tomography (CT) of the chest was performed without intravenous contrast. The dose -length product (DLP) was 586.03 mGy-cm. Automated exposure control and iterative reconstruction tech nique were employed. COMPARISON: 10/18/2019 FINDINGS: There are minimal patchy airspace opacities of the right lower lobe. No pleural effusion or pneumothorax. The heart size is normal. Calcified coronary artery atherosclerosis is noted. There is mild right hilar and mediastinal lymphadenopathy, likely reactive. There is mild thoracic spondylosi s. IMPRESSION: 1. Minimal right lower lobe pneumonia. Reviewed, dictated and finalized at location F.
[2022-12-23 08:31] VITALS: BP 118/86; PULSE 81; RESP 12; TEMP 37.3; O2SAT 100
[2022-12-23 08:37] VITALS: O2SAT 100
--- NOTE | 2022-12-23 08:44 | ECG_ITS ---
Measurements Intervals [place] Rate: 75 P: 46 OR: 169 QRS: 21 QRSD: 93 T: 4 QT: 364 QTc: 409 Interpretive Statements SINUS RHYTHM LOW QRS VOLTAGE IN PRECORDIAL LEADS [QRS DEFLECTION < 1.0 mV IN CHEST LEADS] BORDERLINE ECG COMPARED TO ECG 10/07/2020 21:07:49 NO SIGNIFICANT CHANGES Electronically Signed On 12-23-2022 9:32:49 CDT by Joshua Leach M.D.
--- NOTE | 2022-12-23 09:05 | ED.URI ---
HPI - URI/Sore Throat General Chief Complaint: Upper Respiratory Infection Stated Complaint: cough Time Seen by Provider: 12/23/22 08:25 Source: patient and RN notes reviewed Mode of arrival: ambulatory Limitations: no limitations History of Present Illness HPI Narrative: This is a 57 year old female who presents for evaluation of URI symptoms. She reports developed cough and tickle in her throat 8 days ago. She was evaluated by PCP on Saturday and she was prescribed cough medication and azithromycin. She reports cough has not improved and she feels like she is breathing hard. She denies chest pain. She also reports fever 100 last night. Her cough is nonproductive. Related Data Home Medications Medication Instructions Recorded Confirmed vibegron 75 mg tablet (Gemtesa) 75 mg PO DAILY 04/30/22 12/21/22 levocetirizine 5 mg tablet (Xyzal) 5 mg PO DAILY 06/07/22 12/21/22 Allergies Allergy/AdvReac Type Severity Reaction Status Date / Time hydrocodone AdvReac Mild Anxiety Verified 12/21/22 08:26 lisinopril AdvReac Mild Cough Verified 12/21/22 08:26 pantoprazole AdvReac Unknown Insomnia Verified 12/21/22 08:26 Review of Systems Constitutional: Constitutional: Reports fever(s) and Denies weakness ENT: Denies nasal congestion Cardiovascular: Cardiovascular: Denies syncope, Denies rapid heart rate, Denies irregular heart rhythm, Denies leg edema and Reports dyspnea Respiratory: Respiratory: Reports chest congestion, Reports cough, Denies hemoptysis, Denies excessive phlegm production and Reports dyspnea Gastrointestinal: Gastrointestinal: Denies abdominal pain, Denies hematochezia, Denies diarrhea and Denies vomiting Genitourinary: Genitourinary: Denies hematuria and Denies dysuria Musculoskeletal: Musculoskeletal: Denies joint swelling, Denies loss of height and Denies muscle weakness Neurologic: Denies syncope, Denies focal weakness and Denies weakness [facility] Past Medical History Medical History (Updated 12/23/22 @ 11:19 by Jacinta Guidry MD) Achilles tendonitis Adenomatous colon polyp Chronic insomnia Deep vein thrombosis (DVT) of calf muscle vein of right lower extremity Fatigue (~12/23/22) Functional dyspepsia Globus pharyngeus HLD (hyperlipidemia) HTN (hypertension) IFG (impaired fasting glucose) Obese Obesity Oropharyngeal dysphagia Pneumonia Pure hyperglyceridemia SOB (shortness of breath) Surgical History Surgical History History of bladder surgery History of History of foot surgery right foot- bone spurs History of hysterectomy History of tonsillectomy S/P hemorrhoidectomy Family History Family History Mother Family history of blood dyscrasia Hypertension Family history of malignant neoplasm of kidney Cerebrovascular accident Family history of arthritis Family history of malignant neoplasm Sibling Family history of blood dyscrasia Father Hypertension Family history of arthritis Family history of malignant neoplasm of kidney Family history of malignant neoplasm Other Family history of arthritis Social History Social History Smoking status: Never smoker Second hand tobacco smoke exposure: No Alcohol intake: current Alcohol use details: rarely Substance use: never Substance use type: does not use Lack of Transportation: No Lack of Food: Never True Current Housing: I Have Housing Concerned About Future Housing: No Difficulty Paying Gas/Electric Bills: No Difficulty Paying for Meds: No Currently Unemployed: No Education: High School Diploma/GED Difficulty w/ Childcare or Family Care: No Living arrangements: with family Occupation/Education: occupation Gender identity (if verbalized by the patient): Female Sexual Orientation (if Verbalized by the Patient): Straight or Heteros
[2022-12-23] MEDS: ALBUTEROL SULFATE (*SP) AEROSOL 1 PUFF 2 PUFF INHALATION (09:27)
[2022-12-23 09:28] VITALS: PULSE 89; RESP 20
[2022-12-23 09:56] LABS: Influenza A QL RT-PCR Negative (Negative); Influenza B QL RT-PCR Negative (Negative); RSV RNA, RT-PCR Negative (Negative); SARS-CoV-2 RNA PCR Negative (Negative)
[2022-12-23 10:29] LABS: Basophils Percent Auto 0.6 % (0.2-1.2); Eosinophils Absolute Auto 0.2 K/mm3 (0-0.3); Eosinophils Percent Auto 3.2 % (0-4.4); Hematocrit 40.3 % (37.0-47.0); Hemoglobin 13.1 g/dL (12.0-15.0); Immature Granulocyte Absolute 0.01 K/mm3 (0.00-0.031); Immature Granulocyte Percent A 0.2 % (0-0.5); Lymphocytes Absolute Auto 2.18 K/mm3 (0.9-3.2); Lymphocytes Percent Auto 33.6 % (18.3-44.2); Mean Corpuscular HGB Conc 32.5 g/dl (32-36); Mean Corpuscular Volume 89.2 fl (80-100); Mean Platelet Volume 10.5 fl (7.4-10.4); Monocytes Absolute Auto 0.8 K/mm3 (0.1-0.6); Monocytes Percent Auto 12.2 % (2.6-8.5); Neutrophils Absolute Auto 3.3 K/mm3 (1.3-6.7); Neutrophils Percent Auto 50.2 % (45.5-73.1); Platelet Count Result 204 k/mm3 (150-375); Red Blood Count 4.52 M/mm3 (4.2-5.4); Red Cell Distribution Width 13.2 % (11.5-14.5); White Blood Count 6.5 K/mm3 (4.5-10.0)
[2022-12-23 10:39] LABS: Alanine Aminotransferase 45 U/L (6-35); Albumin Level 4.1 g/dL (3.5-5.1); Alkaline Phosphatase 57 U/L (38-126); Anion Gap 7 mmol/L (8-16); Aspartate Amino Transferase 51 U/L (14-36); Bilirubin,Total 0.5 mg/dL (0.2-1.3); Blood Urea Nitrogen 13 mg/dL (7-17); Carbon Dioxide 30 mmol/L (22-30); Chloride 103 mmol/L (98-107); Estimated CRCL calculation 104 ml/min; Estimated Glomerular Filt Rate > 60; Glucose 103 mg/dL (65-110); Potassium 3.2 mmol/L (3.4-5.0); Sodium 140 mmol/L (137-145)
[2022-12-23] MEDS: POTASSIUM CHLORIDE 20 MEQ ER TABLET 40 MEQ PO (11:01)
== END 2022-12-23 11:42 | disposition home or self-care (01) ==
PROVIDERS: Emergency Provider General Practice; PCP Family Medicine
DX: J18.9 Pneumonia, unspecified organism (principal); Z20.822 Contact with and (suspected) exposure to COVID-19; E78.5 Hyperlipidemia, unspecified; I10 Essential (primary) hypertension; E66.9 Obesity, unspecified; Z68.41 Body mass index [BMI] 40.0-44.9, adult; K30 Functional dyspepsia; Z87.01 Personal history of pneumonia (recurrent); Z86.010 Personal history of colon polyps; Z86.718 Personal history of other venous thrombosis and embolism; Z90.710 Acquired absence of both cervix and uterus
CPT/HCPCS: 36415; 71046; 71250; 80053; 85025; 87637; 93005; 94640; 94664; 99284; A9270

== ENCOUNTER 2023-02-08 08:38 | Emergency (ER) | payer BC, SELFPAY ==
--- NOTE | ~2023-02-08 | US_ITS ---
EXAMINATION: US venous doppler LE RT DATE: 02/08/2023 09:14 INDICATION: Right calf pain. TECHNIQUE: Grayscale ultrasound images without and with compression and Doppler ultrasound images of the right lower extremity veins were obtained. COMPARISON: Ultrasound 03/14/2020 FINDINGS: The visualized portions of right common femoral vein, profunda (deep) femoral vein, femoral vein, pop liteal vein, peroneal veins, posterior tibial veins, and greater saphenous vein outflow are patent. IMPRESSION: 1. No deep venous thrombosis. Reviewed, dictated and finalized at location A. L WORKER
[2023-02-08 08:47] VITALS: BP 135/81; PULSE 80; RESP 16; TEMP 36.6; O2SAT 100
[2023-02-08 08:54] VITALS: BP 135/90; PULSE 86; RESP 16; O2SAT 100
[2023-02-08 09:16] VITALS: BP 133/96; PULSE 83; RESP 17; O2SAT 96
[2023-02-08 09:20] LABS: Basophils Absolute Auto 0.1 K/mm3 (0.0-0.1); Basophils Percent Auto 0.6 % (0.2-1.2); Eosinophils Absolute Auto 0.2 K/mm3 (0-0.3); Eosinophils Percent Auto 2.7 % (0-4.4); Hematocrit 40.3 % (37.0-47.0); Hemoglobin 13.5 g/dL (12.0-15.0); Immature Granulocyte Absolute 0.04 K/mm3 (0.00-0.031); Immature Granulocyte Percent A 0.5 % (0-0.5); Lymphocytes Percent Auto 26.3 % (18.3-44.2); Mean Corpuscular HGB Conc 33.5 g/dl (32-36); Mean Corpuscular Volume 86.7 fl (80-100); Mean Platelet Volume 10.3 fl (7.4-10.4); Monocytes Absolute Auto 0.4 K/mm3 (0.1-0.6); Monocytes Percent Auto 4.2 % (2.6-8.5); Neutrophils Absolute Auto 5.7 K/mm3 (1.3-6.7); Neutrophils Percent Auto 65.7 % (45.5-73.1); Platelet Count Result 278 k/mm3 (150-375); Red Blood Count 4.65 M/mm3 (4.2-5.4); Red Cell Distribution Width 13.3 % (11.5-14.5); White Blood Count 8.7 K/mm3 (4.5-10.0)
--- NOTE | 2023-02-08 09:23 | ED.EXTPRO ---
HPI - Extremity Problem General Chief complaint: Extremity Problem,Nontraumatic Stated complaint: right leg pain, r/o blood clot Time Seen by Provider: 02/08/23 08:40 Source: patient, RN notes reviewed and old records reviewed Mode of arrival: ambulatory Limitations: no limitations History of Present Illness HPI Narrative: This is 57 year old female who presents for evaluation of right calf pain. She woke up this morning with right calf soreness. She reports she right lower extremity DVT 3 years ago in same leg after a surgery. She report pain feels similar. She describes pain as charley horse . She denies leg swelling, chest pain, fever, shortness of breath. She wants to make sure she does not have another DVT. Related Data Home Medications Medication Instructions Recorded Confirmed vibegron 75 mg tablet (Gemtesa) 75 mg PO DAILY 04/30/22 12/21/22 levocetirizine 5 mg tablet (Xyzal) 5 mg PO DAILY 06/07/22 12/21/22 Allergies Allergy/AdvReac Type Severity Reaction Status Date / Time hydrocodone AdvReac Mild Anxiety Verified 02/01/23 08:57 lisinopril AdvReac Mild Cough Verified 02/01/23 08:57 pantoprazole AdvReac Unknown Insomnia Verified 02/01/23 08:57 Review of Systems Constitutional: Constitutional: Denies weakness Cardiovascular: Cardiovascular: Denies syncope, Denies rapid heart rate, Denies irregular heart rhythm, Denies leg edema and Denies dyspnea Respiratory: Respiratory: Denies chest congestion, Reports cough, Denies hemoptysis, Denies excessive phlegm production and Denies dyspnea Gastrointestinal: Gastrointestinal: Denies abdominal pain, Denies hematochezia, Denies diarrhea and Denies vomiting Genitourinary: Genitourinary: Denies hematuria and Denies dysuria Musculoskeletal: Musculoskeletal: Denies joint swelling, Denies loss of height, Reports muscle cramps and Denies muscle weakness Neurologic: Denies syncope, Denies focal weakness and Denies weakness PMFSH Past Medical History Medical History Achilles tendonitis Adenomatous colon polyp Chronic insomnia Deep vein thrombosis (DVT) of calf muscle vein of right lower extremity Fatigue (~12/23/22) Functional dyspepsia Globus pharyngeus HLD (hyperlipidemia) HTN (hypertension) IFG (impaired fasting glucose) Obese Obesity Oropharyngeal dysphagia Pneumonia Pure hyperglyceridemia SOB (shortness of breath) Surgical History Surgical History History of bladder surgery History of History of foot surgery right foot- bone spurs History of hysterectomy History of tonsillectomy S/P hemorrhoidectomy Family History Family History Mother Family history of blood dyscrasia Hypertension Family history of malignant neoplasm of kidney Cerebrovascular accident Family history of arthritis Family history of malignant neoplasm Sibling Family history of blood dyscrasia Father Hypertension Family history of arthritis Family history of malignant neoplasm of kidney Family history of malignant neoplasm Other Family history of arthritis Social History Social History Smoking status: Never smoker Second hand tobacco smoke exposure: No Alcohol intake: current Alcohol use details: rarely Substance use: never Substance use type: does not use Lack of Transportation: No Lack of Food: Never True Current Housing: I Have Housing Concerned About Future Housing: No Difficulty Paying Gas/Electric Bills: No Difficulty Paying for Meds: No Currently Unemployed: No Education: High School Diploma/GED Difficulty w/ Childcare or Family Care: No Living arrangements: with family Occupation/Education: occupation Gender identity (if verbalized by the patient): Female Sexual Orientation (if Verbalized by the Pat
[2023-02-08 09:33] LABS: Alanine Aminotransferase 50 U/L (6-35); Albumin Level 4.1 g/dL (3.5-5.1); Alkaline Phosphatase 61 U/L (38-126); Anion Gap 10 mmol/L (8-16); Aspartate Amino Transferase 39 U/L (14-36); Bilirubin,Total 0.6 mg/dL (0.2-1.3); Blood Urea Nitrogen 15 mg/dL (7-17); Calcium 9.3 mg/dL (8.4-10.2); Carbon Dioxide 27 mmol/L (22-30); Chloride 104 mmol/L (98-107); Estimated CRCL calculation 104 ml/min; Estimated Glomerular Filt Rate > 60; Glucose 128 mg/dL (65-110); Magnesium 1.9 mg/dL (1.6-2.3); Potassium 3.4 mmol/L (3.4-5.0); Sodium 141 mmol/L (137-145)
[2023-02-08 09:41] LABS: INR 0.9; Partial Thromboplastin Time 23.3 SECONDS (22.3-36.8); Prothrombin Time 12.2 Seconds (11.1-14.7)
[2023-02-08 09:46] VITALS: BP 132/97; PULSE 76; RESP 16; O2SAT 99
[2023-02-08 09:54] VITALS: BP 132/87; PULSE 87; RESP 18; O2SAT 100
== END 2023-02-08 09:55 | disposition home or self-care (01) ==
PROVIDERS: Emergency Provider General Practice; PCP Family Medicine
DX: M79.661 Pain in right lower leg (principal); E78.5 Hyperlipidemia, unspecified; I10 Essential (primary) hypertension; Z86.718 Personal history of other venous thrombosis and embolism
CPT/HCPCS: 36415; 80053; 83735; 85025; 85610; 85730; 93971; 99284

== ENCOUNTER 2023-03-25 10:13 | Emergency (ER) | payer BC, SELFPAY ==
--- NOTE | ~2023-03-25 | XR_ITS ---
EXAMINATION: XR chest 2V DATE: 03/25/2023 10:54 INDICATION: Cough. TECHNIQUE: Frontal and lateral views of the chest were obtained. COMPARISON: Chest 2 views 12/23/2022 FINDINGS: There is mild atelectasis in right lower lung zone. No pleural effusion or pneumothorax. Th e heart size is normal. IMPRESSION: 1. Mild atelectasis in right lower lung zone. Reviewed, dictated and finalized at location A. 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
[2023-03-25 10:28] VITALS: BP 150/85; PULSE 116; RESP 20; TEMP 36.4; O2SAT 100
--- NOTE | 2023-03-25 10:30 | ED.URI ---
HPI - URI/Sore Throat General Chief Complaint: Upper Respiratory Infection Stated Complaint: cough, trouble breathing Time Seen by Provider: 03/25/23 10:25 Source: patient Mode of arrival: ambulatory Limitations: no limitations History of Present Illness HPI Narrative: Nayely is a 57-year-old female patient presenting to clinic today with complaints of difficulty breathing and cough. She reports that she was positive for RSV on March 23. Reports she is having states a nonproductive cough and feels as though her lymph nodes and lung in her throat. She has been taking Robitussin for her cough. MD elicited complaint: sore throat and nasal congestion Related Data Home Medications Medication Instructions Recorded Confirmed vibegron 75 mg tablet (Gemtesa) 75 mg PO DAILY 04/30/22 12/21/22 levocetirizine 5 mg tablet (Xyzal) 5 mg PO DAILY 06/07/22 12/21/22 Allergies Allergy/AdvReac Type Severity Reaction Status Date / Time hydrocodone AdvReac Mild Anxiety Verified 03/04/23 09:29 lisinopril AdvReac Mild Cough Verified 03/04/23 09:29 pantoprazole AdvReac Unknown Insomnia Verified 03/04/23 09:29 Review of Systems Review of Systems: Pertinent positives per HPI. Patient denies any fever, chills, rash, headache, visual changes, dizziness,runny nose, sore throat, shortness of breath, chest pain, palpitations, nausea, vomiting, diarrhea, constipation, abdominal pain, or any urinary issues. [facility] Past Medical History Medical History Achilles tendonitis Adenomatous colon polyp Chronic insomnia Deep vein thrombosis (DVT) of calf muscle vein of right lower extremity Fatigue (~12/23/22) Functional dyspepsia Globus pharyngeus HLD (hyperlipidemia) HTN (hypertension) IFG (impaired fasting glucose) Obese Obesity Oropharyngeal dysphagia Pneumonia Pure hyperglyceridemia SOB (shortness of breath) Surgical History Surgical History History of bladder surgery History of History of foot surgery right foot- bone spurs History of hysterectomy History of tonsillectomy S/P hemorrhoidectomy Family History Family History Mother Family history of blood dyscrasia Hypertension Family history of malignant neoplasm of kidney Cerebrovascular accident Family history of arthritis Family history of malignant neoplasm Sibling Family history of blood dyscrasia Father Hypertension Family history of arthritis Family history of malignant neoplasm of kidney Family history of malignant neoplasm Other Family history of arthritis Social History Social History Smoking status: Never smoker Second hand tobacco smoke exposure: No Alcohol intake: current Alcohol use details: rarely Substance use: never Substance use type: does not use Lack of Transportation: No Lack of Food: Never True Current Housing: I Have Housing Concerned About Future Housing: No Difficulty Paying Gas/Electric Bills: No Difficulty Paying for Meds: No Currently Unemployed: No Education: High School Diploma/GED Difficulty w/ Childcare or Family Care: No Living arrangements: with family Occupation/Education: occupation Gender identity (if verbalized by the patient): Female Sexual Orientation (if Verbalized by the Patient): Straight or Heterosexual Spiritual care concerns: No Comments At the time of my signature, I reviewed and agree with the nursing past medical, surgical, social, and family history. There is no relevant family history pertinent to the patient complaint. Exam Narrative: General: Well-developed, well nourished, in no apparent distress Head: Normocephalic, atraumatic Eyes: Pupils equally round and reactive to light bilaterally, EOM intact, sclera and conjunc
[2023-03-25 11:13] VITALS: O2SAT 97
[2023-03-25 11:16] LABS: Basophils Absolute Auto 0.1 K/mm3 (0.0-0.1); Basophils Percent Auto 0.5 % (0.2-1.2); Eosinophils Absolute Auto 0.3 K/mm3 (0-0.3); Eosinophils Percent Auto 2.9 % (0-4.4); Hematocrit 41.6 % (37.0-47.0); Hemoglobin 13.5 g/dL (12.0-15.0); Immature Granulocyte Absolute 0.05 K/mm3 (0.00-0.031); Immature Granulocyte Percent A 0.5 % (0-0.5); Lymphocytes Absolute Auto 1.46 K/mm3 (0.9-3.2); Lymphocytes Percent Auto 13.7 % (18.3-44.2); Mean Corpuscular HGB Conc 32.5 g/dl (32-36); Mean Corpuscular Volume 89.5 fl (80-100); Mean Platelet Volume 10.3 fl (7.4-10.4); Monocytes Absolute Auto 0.8 K/mm3 (0.1-0.6); Monocytes Percent Auto 7.9 % (2.6-8.5); Neutrophils Percent Auto 74.5 % (45.5-73.1); Platelet Count Result 225 k/mm3 (150-375); Red Blood Count 4.65 M/mm3 (4.2-5.4); Red Cell Distribution Width 13.4 % (11.5-14.5); White Blood Count 10.7 K/mm3 (4.5-10.0)
[2023-03-25 11:25] LABS: Alanine Aminotransferase 40 U/L (6-35); Albumin Level 4.3 g/dL (3.5-5.1); Alkaline Phosphatase 62 U/L (38-126); Anion Gap 9 mmol/L (8-16); Aspartate Amino Transferase 33 U/L (14-36); Bilirubin,Total 0.6 mg/dL (0.2-1.3); Blood Urea Nitrogen 15 mg/dL (7-17); Calcium 9.4 mg/dL (8.4-10.2); Carbon Dioxide 29 mmol/L (22-30); Chloride 101 mmol/L (98-107); Estimated CRCL calculation 84 ml/min; Estimated Glomerular Filt Rate > 60; Glucose 105 mg/dL (65-110); Potassium 3.2 mmol/L (3.4-5.0); Sodium 139 mmol/L (137-145)
[2023-03-25 11:29] VITALS: BP 120/81; PULSE 99; RESP 20; TEMP 37.4; O2SAT 98
[2023-03-25 11:39] LABS: Strep Group A RT-PCR NOT DETECTED (Negative)
[2023-03-25 12:14] VITALS: BP 104/72; PULSE 100; RESP 19; O2SAT 99
== END 2023-03-25 12:16 | disposition home or self-care (01) ==
PROVIDERS: Emergency Provider Nurse Practitioner Family; PCP Family Medicine
DX: J20.5 Acute bronchitis due to respiratory syncytial virus (principal); E78.5 Hyperlipidemia, unspecified; I10 Essential (primary) hypertension; E66.9 Obesity, unspecified; Z68.41 Body mass index [BMI] 40.0-44.9, adult; Z87.01 Personal history of pneumonia (recurrent); Z86.010 Personal history of colon polyps; Z86.718 Personal history of other venous thrombosis and embolism; Z90.710 Acquired absence of both cervix and uterus
CPT/HCPCS: 36415; 71046; 80053; 85025; 87651; 99283

== ENCOUNTER 2023-06-14 00:05 | Emergency (ER) | payer BC, SELFPAY ==
[2023-06-14 00:08] VITALS: BP 131/70; PULSE 80; RESP 16; TEMP 36.4; O2SAT 99
--- NOTE | 2023-06-14 01:15 | PC.NURSE ---
Pt states that most of the pain has resolved. States that she would like to go home and call her physician in the morning. Encouraged to stay for MSE, but declines. Pt ambulatory with steady gait to waiting room, axox4.
== END 2023-06-14 01:15 | disposition left against medical advice (07) ==
LOC: ANHED 01:55
PROVIDERS: PCP Family Medicine
DX: M25.552 Pain in left hip (principal)
CPT/HCPCS: 99199

== ENCOUNTER 2023-06-15 16:41 | Emergency (ER) | payer BC, SELFPAY ==
--- NOTE | ~2023-06-15 | US_ITS ---
EXAMINATION: US venous doppler LE RT DATE: 06/15/2023 19:30 INDICATION: RLE pain, r hip/thigh/posterior knee . TECHNIQUE: Grayscale images without and with compression and Doppler images of the right lower extrem ity veins were obtained. COMPARISON: 02/08/2023 FINDINGS: The right common femoral vein, profunda (deep) femoral vein, femoral vein, popliteal vein, peroneal v ein, posterior tibial veins, and greater saphenous vein are patent. IMPRESSION: Patent right lower extremity veins. No evidence of deep venous thrombosis. Reviewed, dictated and finalized at location K.
--- NOTE | ~2023-06-15 | XR_ITS ---
EXAM: XR hip RT min 2V DATE: 06/15/2023 17:09 HISTORY: HIP PAIN THAT RUNS DOWN LEG AND FEELS LIKE CRAMP . COMPARISON: None available. FINDINGS: Normal mineralization. No fracture or dislocation. No lytic or blastic lesion. Mild right hip osteoarthritis. No erosion or periosteal change. Soft tissues within normal limits. IMPRESSION: No acute osseous finding in the right hip. Reviewed, dictated and finalized at location K.
[2023-06-15 16:45] VITALS: BP 150/97; PULSE 83; RESP 16; TEMP 36.6; O2SAT 98
--- NOTE | 2023-06-15 18:33 | ED.EXTPRO ---
HPI - Extremity Problem General Chief complaint: Extremity Problem,Nontraumatic <Jayla Elmore PA-C - Last Filed: 06/15/23 19:00> Stated complaint: right hip pain <MARILYN Bo Last Filed: 06/15/23 19:00> Time Seen by Provider: 06/15/23 18:31 <MARILYN Bo Last Filed: 06/15/23 19:00> Source: patient <MARILYN Bo Last Filed: 06/15/23 19:00> Mode of arrival: ambulatory <MARILYN Bo Last Filed: 06/15/23 19:00> Limitations: no limitations <MARILYN Bo Last Filed: 06/15/23 19:00> History of Present Illness HPI Narrative: Patient is a 57-year-old female who presents to the ED with report of right hip and thigh pain. Patient reports she helped her daughters move last Saturday and was going up and down stairs frequently. She denies any direct injury or fall. She has been having pain in her right hip, radiating down her right thigh, down to her right posterior knee since then. She states the pain is intermittent, occurs in contractions, up to 5 times per day. Denies the pain being significantly worse with movement. Has been taking Tylenol and ibuprofen intermittently without improvement. Denies swelling of leg or knee. Denies numbness or tingling. Denies back pain <MARILYN Bo Last Filed: 06/15/23 19:00> Related Data Home medications: Home Medications Medication Instructions Recorded Confirmed vibegron 75 mg tablet (Gemtesa) 75 mg PO DAILY 04/30/22 04/02/23 levocetirizine 5 mg tablet (Xyzal) 5 mg PO DAILY 06/07/22 04/02/23 <MARILYN Bo Last Filed: 06/15/23 19:00> Allergies/Adverse reactions: Allergies Allergy/AdvReac Type Severity Reaction Status Date / Time lisinopril AdvReac Mild Cough Verified 06/15/23 18:23 pantoprazole AdvReac Unknown Insomnia Verified 06/15/23 18:23 <Jayla Elmore PA-C - Last Filed: 06/15/23 19:00> Review of Systems Review of Systems: CONSTITUTIONAL: Denies fever, chills, or sweats. MUSCULOSKELETAL: see HPI. NEUROLOGIC: Denies numbness, or weakness. <Jayla Elmore PA-C - Last Filed: 06/15/23 19:00> All systems reviewed & are unremarkable except as noted in HPI and below <Jayla Elmore PA-C - Last Filed: 06/15/23 19:00> [facility] Past Medical History Medical History: Medical History Achilles tendonitis Adenomatous colon polyp Chronic insomnia Deep vein thrombosis (DVT) of calf muscle vein of right lower extremity Fatigue (~12/23/22) Functional dyspepsia Globus pharyngeus HLD (hyperlipidemia) HTN (hypertension) IFG (impaired fasting glucose) Obese Obesity Oropharyngeal dysphagia Pneumonia Pure hyperglyceridemia SOB (shortness of breath) <Jayla Elmore PA-C - Last Filed: 06/15/23 19:00> Surgical History Surgical History: Surgical History History of bladder surgery History of History of foot surgery right foot- bone spurs History of hysterectomy History of tonsillectomy S/P hemorrhoidectomy <Jayla Elmore PA-C - Last Filed: 06/15/23 19:00> Family History Family History: Family History Mother Family history of blood dyscrasia Hypertension Family history of malignant neoplasm of kidney Cerebrovascular accident Family history of arthritis Family history of malignant neoplasm Sibling Family history of blood dyscrasia Father Hypertension Family history of arthritis Family history of malignant neoplasm of kidney Family history of malignant neoplasm Other Family history of arthritis <Jayla Elmore PA-C - Last Filed: 06/15/23 19:00> Social History Social History: Social History (Reviewed 06/15/23 @ 18:38 by Jayla Elmore,
[2023-06-15] MEDS: ACETAMINOPHEN 500 MG TABLET 1000 MG PO (19:16)
[2023-06-15] MEDS: CYCLOBENZAPRINE HCL 5 MG TABLET PO (19:17)
[2023-06-15] MEDS: methylPREDNISolone SOD SUCC 125 MG VIAL IM (19:19)
[2023-06-15] MEDS: KETOROLAC (*BKC) 60 MG/2 ML VIAL IM (19:19)
== END 2023-06-15 19:56 | disposition home or self-care (01) ==
PROVIDERS: Emergency Provider Physician Assistant; PCP Family Medicine
DX: S76.011A Strain of muscle, fascia and tendon of right hip, initial encounter (principal); I10 Essential (primary) hypertension; E78.5 Hyperlipidemia, unspecified; E66.9 Obesity, unspecified; Z68.41 Body mass index [BMI] 40.0-44.9, adult; Z87.01 Personal history of pneumonia (recurrent); Z86.010 Personal history of colon polyps; Z86.718 Personal history of other venous thrombosis and embolism; Z90.710 Acquired absence of both cervix and uterus; X50.3XXA Overexertion from repetitive movements, initial encounter
CPT/HCPCS: 73502; 93971; 96372; 99284; A9270; J1885; J2930

== ENCOUNTER 2023-08-07 09:58 | Emergency (ER) | payer BC, SELFPAY ==
--- NOTE | ~2023-08-07 | XR_ITS ---
EXAMINATION: XR chest 2V DATE: 08/07/2023 10:47 INDICATION: Cough, fever and shortness of breath TECHNIQUE: PA and lateral views of the chest were obtained. COMPARISON: Chest radiograph dated 03/25/23 FINDINGS: The lungs are clear with no focal airspace opacities, pulmonary edema, pleural effusion or pneumothor ax. The cardiomediastinal silhouette is normal. Moderate midthoracic spondylosis. IMPRESSION: 1. No acute cardiopulmonary disease. Reviewed, dictated and finalized at location A.
[2023-08-07 10:07] VITALS: BP 115/70; PULSE 94; RESP 16; TEMP 36.7; O2SAT 98
--- NOTE | 2023-08-07 10:25 | ED.URI ---
HPI - URI/Sore Throat General Chief Complaint: Upper Respiratory Infection Stated Complaint: COUGH/FEVER/DIARRHEA/HEADACHE Time Seen by Provider: 08/07/23 10:25 Source: patient Mode of arrival: ambulatory Limitations: no limitations History of Present Illness HPI Narrative: 57-year-old female presents with complaint cough, fatigue, body aches for 5 days. Patient reports fever for 3 days. Taking Tylenol, ibuprofen to treat fever. Takes daily allergy medication. Not taking any [id number] cough suppressant. Patient reports history of RSV, pneumonia in the fall. Patient reports shortness of breath with exertion. All systems reviewed and negative except as noted above. Related Data Home Medications Medication Instructions Recorded Confirmed levocetirizine 5 mg tablet (Xyzal) 5 mg PO DAILY 06/07/22 08/07/23 Allergies Allergy/AdvReac Type Severity Reaction Status Date / Time lisinopril AdvReac Mild Cough Verified 08/07/23 10:26 pantoprazole AdvReac Unknown Insomnia Verified 08/07/23 10:26 Review of Systems Review of Systems: CONSTITUTIONAL: Reports fatigue, fever, chills. Denies sweats. EYES: Denies visual changes, redness, or discharge. ENT: Denies rhinorrhea, congestion, sore throat, or otalgia. CARDIOVASCULAR: Denies chest pain, palpitations, or edema. RESPIRATORY: Reports cough and dyspnea with exertion. GASTROINTESTINAL: Denies abdominal pain, nausea, vomiting, or diarrhea. GENITOURINARY: Denies dysuria or hematuria. SKIN: Denies rash or itching. MUSCULOSKELETAL: Denies back pain, joint pain, or myalgia. NEUROLOGIC: Denies headache, numbness, or weakness. PSYCHIATRIC: Denies anxiety or depression. All other systems reviewed are negative, except as documented in HPI. [facility] Past Medical History Medical History Achilles tendonitis Adenomatous colon polyp Chronic insomnia Deep vein thrombosis (DVT) of calf muscle vein of right lower extremity Fatigue (~12/23/22) Functional dyspepsia Globus pharyngeus HLD (hyperlipidemia) HTN (hypertension) IFG (impaired fasting glucose) Obese Obesity Oropharyngeal dysphagia Pneumonia Pure hyperglyceridemia SOB (shortness of breath) Surgical History Surgical History History of bladder surgery History of History of foot surgery right foot- bone spurs History of hysterectomy History of tonsillectomy S/P hemorrhoidectomy Family History Family History Mother Family history of blood dyscrasia Hypertension Family history of malignant neoplasm of kidney Cerebrovascular accident Family history of arthritis Family history of malignant neoplasm Sibling Family history of blood dyscrasia Father Hypertension Family history of arthritis Family history of malignant neoplasm of kidney Family history of malignant neoplasm Other Family history of arthritis Social History Social History Smoking status: Never smoker Second hand tobacco smoke exposure: No Alcohol intake: current Alcohol use details: rarely Substance use: never Substance use type: does not use Lack of Transportation: No Lack of Food: Never True Current Housing: I Have Housing Concerned About Future Housing: No Difficulty Paying Gas/Electric Bills: No Difficulty Paying for Meds: No Currently Unemployed: No Education: High School Diploma/GED Difficulty w/ Childcare or Family Care: No Living arrangements: with family Occupation/Education: occupation Gender identity (if verbalized by the patient): Female Sexual Orientation (if Verbalized by the Patient): Straight or Heterosexual Spiritual care concerns: No Comments At time of signature, agree with nursing past medical, surgical, social and family history. There is no relevant family hist
--- NOTE | 2023-08-07 11:09 | PC.NURSE ---
PT IS REQUESTING A RSV TEST, REPORTS HER GRAND DAUGHTER HAD IT BACK IN . PT DENIES ANY SOB, NO RESP DISTRESS NOTED. SWAB TO BE OBTAINED.
[2023-08-07 11:16] VITALS: RESP 18; O2SAT 98
[2023-08-07 19:59] LABS: RSV RNA, RT-PCR Negative (Negative)
== END 2023-08-07 11:16 | disposition home or self-care (01) ==
PROVIDERS: Emergency Provider Nurse Practitioner Family; PCP Family Medicine
DX: J06.9 Acute upper respiratory infection, unspecified (principal); R05.9 Cough, unspecified; Z20.822 Contact with and (suspected) exposure to COVID-19; E78.5 Hyperlipidemia, unspecified; I10 Essential (primary) hypertension; R73.01 Impaired fasting glucose; E66.9 Obesity, unspecified; Z68.41 Body mass index [BMI] 40.0-44.9, adult; E78.1 Pure hyperglyceridemia
CPT/HCPCS: 71046; 87081; 87426; 87634; 87804; 87880; 99213; G0463

== ENCOUNTER 2023-08-13 19:51 | Emergency (ER) | payer BC, SELFPAY ==
--- NOTE | ~2023-08-13 | XR_ITS ---
EXAMINATION: XR chest 2V DATE: 08/13/2023 21:02 INDICATION: One week of shortness of breath, cough and fever TECHNIQUE: PA and lateral views of the chest were obtained. COMPARISON: Chest radiograph dated 08/07/[address] dated 12/23/2022 FINDINGS: Unchanged mild linear discoid atelectasis/scarring at the lingula. No other airspace opacities, pulmo nary edema, pleural effusion or pneumothorax. The cardiomediastinal silhouette is normal. Moderate th oracic spondylosis. IMPRESSION: 1. Chronic mild lingular discoid atelectasis/scarring. No acute cardiopulmonary disease. Reviewed, dictated and finalized at location A.
[2023-08-13 20:09] VITALS: BP 118/69; PULSE 99; RESP 16; TEMP 36.3; O2SAT 97
[2023-08-13 20:54] LABS: Influenza A QL RT-PCR Negative (Negative); Influenza B QL RT-PCR Negative (Negative); RSV RNA, RT-PCR Negative (Negative); SARS-CoV-2 RNA PCR Negative (Negative)
[2023-08-13 22:21] VITALS: O2SAT 97
--- NOTE | 2023-08-13 23:17 | ED.GENADULT ---
HPI - General Adult General Chief complaint: Upper Respiratory Infection Stated complaint: COUGH,CONGESTION [id number] Time Seen by Provider: 08/13/23 22:22 Source: patient Mode of arrival: ambulatory Limitations: no limitations History of Present Illness HPI narrative: This is a 58-year-old female who presents to the ED with chief complaint of cough, congestion for the past 1.5 weeks. Reports she was initially seen by urgent care told was likely virus. She reports symptoms are persisting. She has had a lot of chest tightness today. Also endorses fevers with T-max of 101? F. she has been taking Tylenol for the fevers. Denies chest pain, abdominal pain, nausea, vomiting. Has been using albuterol intermittently with mild relief Related Data Home Medications Medication Instructions Recorded Confirmed levocetirizine 5 mg tablet (Xyzal) 5 mg PO DAILY 06/07/22 08/07/23 Allergies Allergy/AdvReac Type Severity Reaction Status Date / Time lisinopril AdvReac Mild Cough Verified 08/07/23 10:26 pantoprazole AdvReac Unknown Insomnia Verified 08/07/23 10:26 Review of Systems Review of Systems: All systems as dictated in HPI [facility] Past Medical History Medical History Achilles tendonitis Adenomatous colon polyp Chronic insomnia Deep vein thrombosis (DVT) of calf muscle vein of right lower extremity Fatigue (~12/23/22) Functional dyspepsia Globus pharyngeus HLD (hyperlipidemia) HTN (hypertension) IFG (impaired fasting glucose) Obese Obesity Oropharyngeal dysphagia Pneumonia Pure hyperglyceridemia SOB (shortness of breath) Surgical History Surgical History History of bladder surgery History of History of foot surgery right foot- bone spurs History of hysterectomy History of tonsillectomy S/P hemorrhoidectomy Family History Family History Mother Family history of blood dyscrasia Hypertension Family history of malignant neoplasm of kidney Cerebrovascular accident Family history of arthritis Family history of malignant neoplasm Sibling Family history of blood dyscrasia Father Hypertension Family history of arthritis Family history of malignant neoplasm of kidney Family history of malignant neoplasm Other Family history of arthritis Social History Social History (Reviewed 07/31/23 @ 12:57 by BECKI Briscoe Smoking status: Never smoker Second hand tobacco smoke exposure: No Alcohol intake: current Alcohol use details: rarely Substance use: never Substance use type: does not use Lack of Transportation: No Lack of Food: Never True Current Housing: I Have Housing Concerned About Future Housing: No Difficulty Paying Gas/Electric Bills: No Difficulty Paying for Meds: No Currently Unemployed: No Education: High School Diploma/GED Difficulty w/ Childcare or Family Care: No Living arrangements: with family Occupation/Education: occupation Gender identity (if verbalized by the patient): Female Sexual Orientation (if Verbalized by the Patient): Straight or Heterosexual Spiritual care concerns: No Exam Narrative: GENERAL: Well-appearing, well-nourished, and in no acute distress. HEAD: Normocephalic, atraumatic. EYES: PERRLA and EOMI. ENT: Nares clear, no rhinorrhea or epistaxis. Mucous membranes moist. Oropharynx without tonsillar hypertrophy exudate or other lesions. NECK: Supple. No adenopathy or masses. CHEST: No respiratory distress. 97% room air. Diffuse expiratory wheezes. HEART: Regular rate and rhythm. No murmur heard. Normal peripheral pulses. ABDOMEN: Soft, nontender, nondistended, normal active bowel sounds. MSK: Normal range of motion. No edema. SKIN: Warm, dry, no rash. NEURO: Alert and oriented x3. No focal deficits. PSYCH: Normal mood and affect. Course Vital Si
[2023-08-13] MEDS: predniSONE 20 MG TABLET PO (23:27)
--- NOTE | 2023-08-13 23:46 | PC.NURSE ---
ED RESP NOTIFIED OF ORDERED BREATHING TX.
[2023-08-13] MEDS: ALBUTEROL SULFATE NEB 2.5 MG/3 ML INH 10 MG INHALATION (23:58)
[2023-08-13] MEDS: IPRATROPIUM BR 0.02% INH SOLN 0.5 MG/2.5 ML VIAL 1 MG INHALATION (23:58)
[2023-08-14 00:58] VITALS: BP 125/70; PULSE 94; RESP 17; O2SAT 99
== END 2023-08-14 00:59 | disposition home or self-care (01) ==
PROVIDERS: Emergency Medicine; Emergency Provider Physician Assistant; PCP Family Medicine
DX: J40 Bronchitis, not specified as acute or chronic (principal); E78.5 Hyperlipidemia, unspecified; J06.9 Acute upper respiratory infection, unspecified; I10 Essential (primary) hypertension; E66.9 Obesity, unspecified; Z68.41 Body mass index [BMI] 40.0-44.9, adult; Z86.718 Personal history of other venous thrombosis and embolism; Z20.822 Contact with and (suspected) exposure to COVID-19
CPT/HCPCS: 71046; 87637; 99283; J7512

== ENCOUNTER 2023-08-27 10:56 | Outpatient (RCR) | payer BC, SELFPAY ==
[2023-08-27 14:23] VITALS: BMI 40.5
== END 2023-11-11 11:16 | disposition home or self-care (01) ==
LOC: ANHDMC 10:56
PROVIDERS: PCP Family Medicine; Visit Provider Physician Assistant Medical
DX: E66.01 Morbid (severe) obesity due to excess calories (principal); R73.01 Impaired fasting glucose; Z71.3 Dietary counseling and surveillance
CPT/HCPCS: 97802

== ENCOUNTER 2023-08-28 15:20 | Emergency (ER) | payer BC, SELFPAY ==
--- NOTE | ~2023-08-28 | XR_ITS ---
EXAMINATION: XR chest 2V DATE: 08/28/2023 15:57 INDICATION: Cough and congestion. TECHNIQUE: Frontal and lateral views of the chest were obtained. COMPARISON: Chest 2 views 08/13/2023 FINDINGS: There is mild atelectasis in left lower lung zone. No pleural effusion or pneumothorax. The heart size is normal. IMPRESSION: 1. Mild atelectasis in left lower lung zone. Reviewed, dictated and finalized at location A.
--- NOTE | 2023-08-28 15:24 | ED.URI ---
HPI - URI/Sore Throat General Chief Complaint: Upper Respiratory Infection Stated Complaint: cough back/chest pressure Source: patient and RN notes reviewed Mode of arrival: ambulatory Limitations: no limitations History of Present Illness HPI Narrative: Patient is a 58-year-old female who presents to the [facility] with complaints of cough that has been ongoing for weeks. Patient states that a few weeks ago she was seen at the [facility] and tested negative for COVID and flu. One week later, her symptoms worsened so she went to the emergency department. She was diagnosed with probable viral bronchitis with possibility of superimposed pneumonia. She was prescribed doxycycline, Augmentin, and prednisone. Patient states that she took these medications as prescribed. However, she continues to have a frequent nonproductive cough that is occasionally productive with white sputum. She also reports shortness of breath with exertion. She states that she experiences chest tightness with her cough. However, she denies chest pain. She states that she has been using an albuterol inhaler at home with some relief. She denies history of COPD or asthma. Her respirations are currently unlabored. Lungs are clear and equal bilaterally. Related Data Home Medications Medication Instructions Recorded Confirmed levocetirizine 5 mg tablet (Xyzal) 5 mg PO DAILY 06/07/22 08/07/23 Allergies Allergy/AdvReac Type Severity Reaction Status Date / Time lisinopril AdvReac Mild Cough Verified 08/28/23 15:29 pantoprazole AdvReac Unknown Insomnia Verified 08/28/23 15:29 Review of Systems Review of Systems: CONSTITUTIONAL: Denies fever, chills, or sweats. EYES: Denies visual changes, redness, or discharge. ENT: Denies otalgia and sore throat CARDIOVASCULAR: Denies chest pain, palpitations, or edema. RESPIRATORY: Reports cough and dyspnea. GASTROINTESTINAL: Denies abdominal pain, nausea, vomiting, or diarrhea. GENITOURINARY: Denies dysuria or hematuria. SKIN: Denies rash or itching. MUSCULOSKELETAL: Denies back pain, joint pain, or myalgia. NEUROLOGIC: Denies headache, numbness, or weakness. Pertinent positives per HPI. [facility] Past Medical History Medical History Achilles tendonitis Adenomatous colon polyp Chronic insomnia Deep vein thrombosis (DVT) of calf muscle vein of right lower extremity Fatigue (~10/01/23) Functional dyspepsia Globus pharyngeus HLD (hyperlipidemia) HTN (hypertension) IFG (impaired fasting glucose) Obese Obesity Oropharyngeal dysphagia Pneumonia Pure hyperglyceridemia SOB (shortness of breath) Surgical History Surgical History History of bladder surgery History of History of foot surgery right foot- bone spurs History of hysterectomy History of tonsillectomy S/P hemorrhoidectomy Family History Family History Mother Family history of blood dyscrasia Hypertension Family history of malignant neoplasm of kidney Cerebrovascular accident Family history of arthritis Family history of malignant neoplasm Sibling Family history of blood dyscrasia Father Hypertension Family history of arthritis Family history of malignant neoplasm of kidney Family history of malignant neoplasm Other Family history of arthritis Social History Social History Smoking status: Never smoker Second hand tobacco smoke exposure: No Alcohol intake: current Alcohol use details: rarely Substance use: never Substance use type: does not use Lack of Transportation: No Lack of Food: Never True Current Housing: I Have Housing Concerned About Future Housing: No Difficulty Paying Gas/Electric Bills: No Difficulty Paying for Meds: No Currently Unemployed: No Educ
[2023-08-28 15:49] VITALS: BP 120/84; PULSE 90; RESP 16; TEMP 36.6; O2SAT 100
== END 2023-08-28 16:14 | disposition home or self-care (01) ==
PROVIDERS: Emergency Provider Nurse Practitioner; PCP Family Medicine
DX: J20.8 Acute bronchitis due to other specified organisms (principal); E78.5 Hyperlipidemia, unspecified; I10 Essential (primary) hypertension; R73.01 Impaired fasting glucose; E66.9 Obesity, unspecified; Z68.41 Body mass index [BMI] 40.0-44.9, adult; E78.1 Pure hyperglyceridemia; Z86.718 Personal history of other venous thrombosis and embolism
CPT/HCPCS: 71046; 99213; G0463

== ENCOUNTER 2023-10-22 08:47 | Outpatient (CLI) | payer BC, SELFPAY ==
--- NOTE | ~2023-10-22 | MMUS_ITS ---
EXAMINATION: MM diagnostic maribell BI w gopi, US breast LT limited HISTORY: Follow-up left breast asymmetries and left axillary pain TECHNIQUE: Additional 3-D tomosynthesis images of the breasts were performed and synthetic 2-D images were generated. CAD analysis was submitted and interpreted. High resolution Limited left breast and axillary ultrasound was performed. COMPARISON: Comparison to multiple prior studies sequentially, with oldest reviewed study dated 06/2017. BREAST PARENCHYMAL COMPOSITION: Not dense: There are scattered areas of fibroglandular density. FINDINGS: MAMMOGRAPHIC FINDINGS: There is no mammographic evidence for malignancy in the right breast. There are asymmetries laterally in the left breast, although no discrete mass or architectural distortion is seen. There are no susp icious calcifications. ULTRASOUND: Limited left breast/axillary ultrasound: There are mildly enlarged left axillary lymph nodes with fat ty hilum, largest measuring 2.5 cm. IMPRESSION: 1. No evidence for malignancy in either breast. Mild left axillary lymphadenopathy, likely benign. 2. Recommend 6 month follow-up left axillary ultrasound BI-RADS category 3, probably benign findings. Reviewed, dictated and finalized at location B. IMPRESSION: 1. No evidence for malignancy in either breast. Mild left axillary lymphadenopa thy, likely benign. 2. Recommend 6 month follow-up left axillary ultrasound BI-RADS category 3, probably benign findings.
== END 2023-10-22 08:48 ==
LOC: MICIMG 08:48
PROVIDERS: PCP Family Medicine; Visit Provider Nurse Practitioner
DX: M79.621 Pain in right upper arm (principal); M79.622 Pain in left upper arm; R92.8 Other abnormal and inconclusive findings on diagnostic imaging of breast
CPT/HCPCS: 76642; 77062; 77066; G0279

== ENCOUNTER 2023-10-22 14:30 | Outpatient (RCR) | payer BC, SELFPAY ==
--- NOTE | 2023-10-16 16:18 | STOPEVAL1 ---
Assessment and note entered by Andie Cortés STRAIGHTENING MACHINE OPERATOR Evaluation Information Assessment Status Evaluation ICD-10 Condition Codes (ST) R13.13 Subjective Information The patient reports a constant cough for at least 7-8 years, sometimes at night, sometimes during the day. She reports that she began to notice that every time she took the first bite, she begins coughing. After that first cough, she tends to swallow okay but will occasionally cough during the meal. She states she had a Modified Barium Swallow test that revealed swallowing skills within normal limits. Patient also stated that her brother has similar symptoms. Reported Pain Level Pain Score 0: Self Report Assessment ST Clinical Summary BEDSIDE SWALLOW EVALUATION This patient was seen for a Bedside Swallow Evaluation at the request of her physician after reporting history of a cough for up to 7-8 years. She states she has had a variety of tests to determine cause of cough, including a Modified Barium Swallow study 03/09/22 which revealed no abnormal swallowing skills. After other assessments and treatments have been tried, patient was referred for direct Speech Therapy to strength the swallow muscles to assess if the cough is related to weakness in the swallowing muscles. Patient reports she has noticed that more frequently she has been coughing while eating and drinking, often after the first bite/sip in a meal or shortly after. Today the patient consumed water per cup, applesauce per spoon, fruit cocktail per spoon, and then marysol cracker per hand. She exhibited no overt signs of aspiration however she was observed to cough at least twice throughout the period of oral presentations. Therapist instructed patient about normal and abnormal swallowing, and then the use of head flexion to assist with prevention of aspiration and additional safe swallowing guidelines. She was also instructed in three swallowing exercises to increase the strength of the swallow, therefore preventing aspiration/cough. Patient voiced good understanding of recommendations and agreed to continue them un
--- NOTE | 2023-11-12 11:08 | PCSTNOTE ---
The patient treatment was not able to be completed on 11/12/23 due to illness. Will plan to continue treatment per plan of care. Patient states she will call to reschedule.
--- NOTE | 2023-11-26 14:05 | STOPDC ---
Assessment and note entered by SCOTTY Gunn Evaluation Information Assessment Status Discharge - Pt Not Presen Assessment ST Clinical Summary DISCHARGE SUMMARY This patient was seen for an initial Speech Therapy evaluation for swallowing and then one treatment of direct Speech Therapy to address patient's complaint of a chronic cough. Patient had reported that she has had a history of a cough however, she passed a Modified Barium Swallow study, but was referred to for any follow-up treatment that would be appropriate. She was presented with instructions to reduce risk for cough, including use of head flexion when swallowing, along with exercises to assist with strengthening the swallowing muscles. She returned for a follow visit but did not follow up further than that additional session. Therapist attempted to contact her with no contact made. She is being discharged at this time. Unsure if goals have been met. Plan of Care Services Indicated No
== END 2023-11-26 15:33 | disposition home or self-care (01) ==
LOC: ANHST 14:30
PROVIDERS: PCP Family Medicine; Visit Provider Physician Assistant
DX: R05.9 Cough, unspecified (principal)
CPT/HCPCS: 92526; 92610

== ENCOUNTER 2024-02-13 12:16 | Outpatient (CLI) | payer BC, SELFPAY ==
--- NOTE | ~2024-02-13 | US_ITS ---
Left axillary ultrasound Clinical history lymphadenopathy COMPARISON: 10/22/2023 FINDINGS: Probable morphologically normal lymph nodes with prominent fatty joseph are noted in the left axilla. No definitely pathologic lymphadenopathy or other suspicious mass seen. IMPRESSION: Probable benign left axillary lymph nodes. Reviewed, dictated and finalized at [facility]. HEMO DIALYSIS
== END 2024-02-13 12:17 | disposition home or self-care (01) ==
LOC: MICIMG 12:17
PROVIDERS: PCP Family Medicine; Visit Provider Surgery
DX: R59.0 Localized enlarged lymph nodes (principal)
CPT/HCPCS: 76882

== ENCOUNTER 2024-02-19 14:14 | Emergency (ER) | payer BC, SELFPAY ==
--- NOTE | ~2024-02-19 | XR_ITS ---
XR shoulder RT min 2V 02/19/2024 15:43 Indication: Right shoulder pain after fall Procedure: 4 views right shoulder Comparison: 09/18/2021 Findings: No fracture, subluxation or dislocation. No significant soft tissue abnormality. No foreign bodies. Impression: 1: No acute bone or joint abnormality. Reviewed, dictated and finalized at location B. 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
--- NOTE | ~2024-02-19 | XR_ITS ---
EXAMINATION: XR forearm RT 2V DATE: 02/19/2024 15:42 INDICATION: Right forearm pain post fall TECHNIQUE: AP an lateral views of the right forearm were obtained. COMPARISON: none FINDINGS: Bone alignment is normal. No fracture. Mild osteoarthritis at the right elbow with no joint effusion. Mild osteoarthritis at a few of the joints at the right hand and wrist. IMPRESSION: 1. 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 No acute osseous abnormality . Reviewed, dictated and finalized at location A. 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 No acu te osseous abnormality.
--- NOTE | ~2024-02-19 | XR_ITS ---
XR elbow LT min 3V 02/19/2024 15:42 INDICATION: Left elbow pain PROCEDURE: 4 views left elbow COMPARISON: No prior studies for comparison. FINDINGS: Fracture, dislocation or subluxation is not identified. The soft tissues appear within norm al limits. No foreign bodies are identified. IMPRESSION: 1: NO ACUTE BONE OR JOINT ABNORMALITY IDENTIFIED. Reviewed, dictated and finalized at location B. 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
[2024-02-19 14:19] VITALS: BP 120/71; PULSE 83; RESP 18; TEMP 36.6; O2SAT 98
[2024-02-19 15:00] VITALS: BP 120/71; PULSE 83; RESP 14; TEMP 36.6; O2SAT 98
--- NOTE | 2024-02-19 15:22 | ED_ITS ---
HPI - Extremity Injury (Upper) General Chief Complaint: Extremity Injury, Upper Stated Complaint: right arm injury r/t fall Time Seen by Provider: 02/19/24 15:18 Source: patient Mode of arrival: ambulatory Limitations: no limitations History of Present Illness HPI narrative: This is a 58-year-old female who presents to the ED for chief complaint of bilateral upper extremity pain after falling off stepstool today. Reports that she slipped, fell into the kitchen island in onto the ground. Reports that she hit her right side on the kitchen island in her left elbow on the ground. She has pain to the left elbow, right wrist, right shoulder. Denies head injury or LOC. Endorses paraspinal muscle pain throughout the mid back. Denies any further injury. Related Data Home Medications Medication Instructions Recorded Confirmed levocetirizine 5 mg tablet (Xyzal) 5 mg PO DAILY 06/07/22 01/24/24 Allergies Allergy/AdvReac Type Severity Reaction Status Date / Time lisinopril AdvReac Mild Cough Verified 01/24/24 13:11 pantoprazole AdvReac Unknown Insomnia Verified 01/24/24 13:11 Review of Systems Review of Systems: All systems as dictated in HPI [facility] Past Medical History Medical History Achilles tendonitis Adenomatous colon polyp Chronic insomnia Deep vein thrombosis (DVT) of calf muscle vein of right lower extremity Fatigue (~12/23/22) Functional dyspepsia Globus pharyngeus HLD (hyperlipidemia) HTN (hypertension) IFG (impaired fasting glucose) Obese Obesity Oropharyngeal dysphagia Pneumonia Pure hyperglyceridemia SOB (shortness of breath) Surgical History Surgical History History of bladder surgery History of History of foot surgery right foot- bone spurs History of hysterectomy History of tonsillectomy S/P hemorrhoidectomy Family History Family History Mother Family history of blood dyscrasia Hypertension Family history of malignant neoplasm of kidney Cerebrovascular accident Family history of arthritis Family history of malignant neoplasm Sibling Family history of blood dyscrasia Father Hypertension Family history of arthritis Family history of malignant neoplasm of kidney Family history of malignant neoplasm Other Family history of arthritis Social History Social History Smoking status: Never smoker Second hand tobacco smoke exposure: No Alcohol intake: current Alcohol use details: rarely Substance use: never Substance use type: does not use Lack of Transportation: No Lack of Food: Never True Current Housing: I Have Housing Concerned About Future Housing: No Difficulty Paying Gas/Electric Bills: No Difficulty Paying for Meds: No Currently Unemployed: No Education: High School Diploma/GED Difficulty w/ Childcare or Family Care: No Living arrangements: with family Occupation/Education: occupation Gender identity (if verbalized by the patient): Female Sexual Orientation (if Verbalized by the Patient): Straight or Heterosexual Spiritual care concerns: No Exam Narrative: GENERAL: Well-appearing, well-nourished, and in no acute distress. HEAD: Normocephalic, atraumatic. EYES: PERRLA and EOMI. ENT: Nares clear, no rhinorrhea or epistaxis. Mucous membranes moist. Oropharynx without tonsillar hypertrophy exudate or other lesions. NECK: Supple. No adenopathy or masses. CHEST: No respiratory distress. Clear to auscultation. No wheezes rales or rhonchi HEART: Regular rate and rhythm. No murmur heard. Normal peripheral pulses. ABDOMEN: Soft, nontender, nondistended, normal active bowel sounds. MSK: Mild tenderness to the right anterior shoulder as well as right dorsal wrist. No deformities. Mild tenderness to the left elbow. No deformities. Neurovascularly intact distally bilaterally No midline spinal tenderness throughout SKIN: Warm, dry, no rash. NEURO: Alert and oriented x4. No focal deficits. PSYCH: Normal mood and affect. Course Vital Signs Vital signs: Vital Signs Temperature 97.8 F 02/19/24 14:19 Pulse Rate 83 02/19/24 14:19 Respiratory Rate 18 02/19/24 14:19 Blood Pressure 120/71 02/19/24 14:19 Pulse Oximetry 98 02/19/24 14:19 Oxygen Delivery Room Air 02/19/24 14:19 Temperature 97.8 F 02/19/24 16:27 Pulse Rate 80 02/19/24 16:27 Respiratory Rate 20 02/19/24 16:27 Blood Pressure 126/76 02/19/24 16:27 Pulse Oximetry 99 02/19/24 16:27 Oxygen Delivery Room Air 02/19/24 14:19 MDM - Extremity Injury (Upper) MDM Narrative Medical decision making narrative: This is a 58-year-old female who presents to the ED for chief complaint of a fall with subsequent right shoulder, right forearm, left elbow pain. Vitals . Exam is remarkable for the above. No overt signs of trauma. X-rays of the right forearm, left elbow and right shoulder are negative for acute osseous findings. She was given Tylenol, Motrin and Norflex here. Presentation consistent with musculoskeletal strains. Patient will be discharged in stable condition. Supportive measures discussed and return precautions given. Patient is understanding and agreeable with plan for discharge with PCP follow-up. Discharge Plan Discharge Clinical Impression: Fall, Musculoskeletal pain Patient Disposition: Home, Self-Care Condition: Stable Instructions: Antibiotic Form Additional Instructions: Exam and imaging today are reassuring. No fractures. These are probably representing musculoskeletal strain/sprain. Please use regular Tylenol and ibuprofen for pain control at home and follow-up with your PCP. If you have any new or worsening symptoms please return to the ER for further evaluation. Prescriptions: No Action albuterol sulfate 90 mcg/actuation HFA aerosol inhaler 1 inh inhalation QID PRN (Reason: shortness of breath or wheezing) Qty: 8.5 0RF Pulmicort Flexhaler 90 mcg/actuation aerosol powdr breath activated 1 inh inhalation Q12H Qty: 1 5RF levocetirizine [Xyzal] 5 mg tablet 5 mg PO DAILY amlodipine 5 mg tablet 5 mg PO DAILY Qty: 90 3RF zolpidem [Ambien CR] 6.25 mg tablet,ext release multiphase 6.25 mg PO QHS PRN (Reason: insomnia) Qty: 30 0RF losartan 100 mg tablet See Rx Instructions .ROUTE .COMPLEX Qty: 90 3RF Dose Instruction: TAKE 1 TABLET BY MOUTH DAILY Rx Instructions: TAKE 1 TABLET BY MOUTH DAILY hydrochlorothiazide 25 mg tablet 25 mg PO DAILY Qty: 90 3RF semaglutide (weight loss) 2.4 mg/0.75 mL pen injector 2.4 mg subcut WEEKLY Qty: 3 5RF Follow-up/Referrals: Rolo Cadena MD [Primary Care Provider] - Time of Disposition: 16:20
[2024-02-19] MEDS: ACETAMINOPHEN 500 MG TABLET 1000 MG PO (15:53)
[2024-02-19] MEDS: IBUPROFEN 400 MG TABLET 800 MG PO (15:53)
[2024-02-19] MEDS: ORPHENADRINE CITRATE 100 MG TABLET.ER PO (15:53)
[2024-02-19 16:27] VITALS: BP 126/76; PULSE 80; RESP 20; TEMP 36.6; O2SAT 99
== END 2024-02-19 16:29 | disposition home or self-care (01) ==
PROVIDERS: Emergency Provider Physician Assistant; PCP Family Medicine
DX: S09.90XA Unspecified injury of head, initial encounter (principal); S49.91XA Unspecified injury of right shoulder and upper arm, initial encounter; S59.902A Unspecified injury of left elbow, initial encounter; S69.91XA Unspecified injury of right wrist, hand and finger(s), initial encounter; I10 Essential (primary) hypertension; E78.5 Hyperlipidemia, unspecified; E66.9 Obesity, unspecified; Z68.33 Body mass index [BMI] 33.0-33.9, adult; Z86.0101 Personal history of adenomatous and serrated colon polyps; Z86.718 Personal history of other venous thrombosis and embolism; Z87.01 Personal history of pneumonia (recurrent); Z90.710 Acquired absence of both cervix and uterus; M19.021 Primary osteoarthritis, right elbow; W17.89XA Other fall from one level to another, initial encounter
CPT/HCPCS: 73030; 73080; 73090; 99284; A9270

== ENCOUNTER 2024-03-10 11:00 | Outpatient (RCR) | payer BC, SELFPAY ==
[2023-12-17 09:17] VITALS: BMI 35.4
[2023-12-17 10:04] VITALS: BMI 35.4
[2024-03-10 13:47] VITALS: BMI 33.3
[2024-03-10 13:48] VITALS: BMI 33.3
== END 2024-03-16 08:27 | disposition home or self-care (01) ==
LOC: ANHDMC 11:00
PROVIDERS: PCP Family Medicine; Visit Provider Physician Assistant Medical
DX: E66.01 Morbid (severe) obesity due to excess calories (principal); R73.01 Impaired fasting glucose; Z71.3 Dietary counseling and surveillance
CPT/HCPCS: 97803

== ENCOUNTER 2024-05-08 11:47 | Emergency (ER) | payer BC, SELFPAY ==
--- NOTE | 2024-05-08 11:56 | ED.URI ---
HPI - URI/Sore Throat General Chief Complaint: Upper Respiratory Infection Stated Complaint: FEVER/SORE THROAT/EARACHE/HEADACHE Time Seen by Provider: 05/08/24 11:56 Source: patient Mode of arrival: ambulatory Limitations: no limitations History of Present Illness HPI Narrative: 58-year-old female presents with complaint of cough, headache, fatigue for 5 days. Afebrile. Patient would like tested for influenza due to her grandson to recently testing positive. They were to get the weekend. She has no chest pain or shortness of breath. Taking Tylenol to treat headaches. All systems reviewed and negative except as noted above. Related Data Home Medications ?Medication ?Instructions ?Recorded ?Confirmed ?Last Taken ?Type levocetirizine 5 mg tablet (Xyzal) 5 mg PO DAILY 06/07/22 04/28/24 Unknown History Allergies Allergy/AdvReac Type Severity Reaction Status Date / Time lisinopril AdvReac Mild Cough Verified 05/08/24 12:02 pantoprazole AdvReac Unknown Insomnia Verified 05/08/24 12:02 Review of Systems Review of Systems: CONSTITUTIONAL: Denies fever, chills, or sweats. Reports fatigue. EYES: Denies visual changes, redness, or discharge. ENT: Denies rhinorrhea, congestion, sore throat, or otalgia. CARDIOVASCULAR: Denies chest pain, palpitations, or edema. RESPIRATORY: Reports cough. Denies dyspnea. GASTROINTESTINAL: Denies abdominal pain, nausea, vomiting, or diarrhea. GENITOURINARY: Denies dysuria or hematuria. SKIN: Denies rash or itching. MUSCULOSKELETAL: Denies back pain, joint pain. Reports myalgia. NEUROLOGIC: Denies headache, numbness, or weakness. PSYCHIATRIC: Denies anxiety or depression. All other systems reviewed are negative, except as documented in HPI. ON LICENSE OF [facility] Past Medical History Medical History Oropharyngeal dysphagia Obesity Obese Adenomatous colon polyp Globus pharyngeus Deep vein thrombosis (DVT) of calf muscle vein of right lower extremity Functional dyspepsia Achilles tendonitis Pure hyperglyceridemia Chronic insomnia SOB (shortness of breath) Pneumonia Fatigue (~12/23/22) IFG (impaired fasting glucose) HLD (hyperlipidemia) HTN (hypertension) Surgical History Surgical History History of bladder surgery History of hysterectomy History of tonsillectomy History of History of foot surgery right foot- bone spurs S/P hemorrhoidectomy Family History Family History Mother Family history of blood dyscrasia Hypertension Family history of malignant neoplasm of kidney Cerebrovascular accident Family history of arthritis Family history of malignant neoplasm Sibling Family history of blood dyscrasia Father Hypertension Family history of arthritis Family history of malignant neoplasm of kidney Family history of malignant neoplasm Other Family history of arthritis Social History Social History (Updated 04/28/24 @ 09:54 by Rashmi Cormier) Social History: Smoking status: Never smoker Second hand tobacco smoke exposure: No Alcohol intake: current Alcohol use details: rarely Substance use: never Substance use type: does not use Do You Feel Safe in your Home?: Yes Lack of Transportation: No Lack of Food: Never True Current Housing: I Have Housing Concerned About Future Housing: No Difficulty Paying Gas/Electric Bills: No Difficulty Paying for Meds: No Currently Unemployed: YES Education: High School Diploma/GED Difficulty w/ Childcare or Family Care: No Living arrangements: with family Occupation/Education: occupation Gender identity (if verbalized by the patient): Female Sexual Orientation (if Verbalized by the Patient): Straight or Heterosexual Spiritual care concerns: No Comments At time of signature, agree with nursing past medical, surgical, social and family history. There is no relevant family history pertinent to the presenting complaint. Exam Narrative: GENERAL: This is a well-nourished, well-developed patient, in no apparent distress. HEAD: normocephalic, atraumatic. EYES: PERRL. Sclera clear/white. Vision is grossly intact. EARS: External ears normal, auditory canals clear and without drainage, TMs normal without perforation. Hearing grossly intact. NOSE: External nose normal with clear nasal drainage THROAT: Mucous membranes moist, posterior pharynx clear. NECK: Neck supple, non-tender without lymphadenopathy, masses or thyromegaly. CARDIOVASCULAR: Regular rate and rhythm without murmurs, gallops, or rubs. RESPIRATORY: Clear to auscultation. Breath sounds equal bilaterally. No wheezes, rales, or rhonchi. SKIN: warm, Dry, intact with no suspicious lesions or rash, good texture and turgor. NEURO: awake, alert, and oriented to person, place and time. There were no obvious focal neurologic abnormalities. EXTREMITIES: No joint tenderness, effusion, or edema noted. Course Course Level of Care: Express Care Visit Vital Signs Vital signs: Vital Signs Temperature 36.2 C L 05/08/24 12:00 Pulse Rate 98 05/08/24 12:00 Respiratory Rate 16 05/08/24 12:00 Blood Pressure 118/86 05/08/24 12:00 Pulse Oximetry 99 05/08/24 12:00 Temperature 36.2 C L 05/08/24 12:00 Pulse Rate 98 05/08/24 12:00 Respiratory Rate 16 05/08/24 12:00 Blood Pressure 118/86 05/08/24 12:00 Pulse Oximetry 99 05/08/24 12:00 Oxygen Delivery Room Air 05/08/24 12:02 Reviewed MDM - URI/Sore Throat MDM Narrative Medical decision making narrative: Negative COVID and influenza. Patient is well-appearing. Lungs clear to auscultation. Recommend [id number] medications to treat viral symptoms. Please be advised this is a medical document. It is intended for [id number] communication. It is written in medical language and may contain unfamiliar abbreviations or verbiage. Medical documents are intended to carry relevant information, facts as evident, and the clinical opinion of the practitioner at the time of the encounter. This report may have been done utilizing a voice recognition system. Attempts have been made to correct errors. However, there may be uncorrected grammatical, spelling, and recognition errors present. The file time of this note does not necessarily represent the time of service. Differential Diagnosis Differential diagnosis: Likely upper respiratory infection, sinusitis, viral infection and influenza Lab Data Labs: Lab Results 05/08/24 Range/Units 12:11 POC Influenza A Ag Negative (Negative) POC Influenza B Ag Negative (Negative) POC SARS CoV-2 Ag Negative (Negative) POC Grp A Strep Screen Negative (Negative) Discharge Plan Discharge Clinical Impression: Viral upper respiratory tract infection with cough Patient Disposition: Home, Self-Care Condition: Stable Instructions: Upper Respiratory Infection (ED) Additional Instructions: Your COVID, influenza and strep test was negative today. Your symptoms are viral and may last 10-14 days. Take [id number] medications to treat her symptoms. May take Tylenol or ibuprofen every 6-8 hours as needed for pain and fever. Drink plenty of fluids and rest. Follow-up with your doctor if symptoms are not improving. Patient Language: Romansh Prescriptions: No Action albuterol sulfate 90 mcg/actuation HFA aerosol inhaler 1 inh inhalation QID PRN (Reason: shortness of breath or wheezing) Qty: 8.5 0RF Pulmicort Flexhaler 90 mcg/actuation aerosol powdr breath activated 1 inh inhalation Q12H Qty: 1 5RF levocetirizine [Xyzal] 5 mg tablet 5 mg PO DAILY amlodipine 5 mg tablet 5 mg PO DAILY Qty: 90 3RF Wegovy 1 mg/0.5 mL pen injector 1 mg subcut WEEKLY Qty: 2 2RF Rx Instructions: administer weeks 9 through 12 of therapy zolpidem [Ambien CR] 6.25 mg tablet,ext release multiphase 6.25 mg PO QHS PRN (Reason: insomnia) Qty: 30 0RF losartan 100 mg tablet See Rx Instructions .ROUTE .COMPLEX Qty: 90 3RF Dose Instruction: TAKE 1 TABLET BY MOUTH DAILY Rx Instructions: TAKE 1 TABLET BY MOUTH DAILY hydrochlorothiazide 25 mg tablet 25 mg PO DAILY Qty: 90 3RF Follow-up/Referrals: Rolo Cadena MD [Primary Care Provider] - Time of Disposition: 12:17
[2024-05-08 12:00] VITALS: BP 118/86; PULSE 98; RESP 16; TEMP 36.2; O2SAT 99
[2024-05-08 12:13] LABS: EDCOVIDSCREEN Negative (Negative); EDINFLUASCREEN Negative (Negative); EDINFLUBSCREEN Negative (Negative); EDSTREPNEGPOS1 Negative (Negative)
== END 2024-05-08 12:20 | disposition home or self-care (01) ==
PROVIDERS: Emergency Provider Nurse Practitioner Family; PCP Family Medicine
DX: J06.9 Acute upper respiratory infection, unspecified (principal); B97.89 Other viral agents as the cause of diseases classified elsewhere; I10 Essential (primary) hypertension; Z20.822 Contact with and (suspected) exposure to COVID-19
CPT/HCPCS: 87081; 87426; 87804; 87880; 99213; G0463

== ENCOUNTER 2024-05-26 13:05 | Outpatient (RCR) | payer BC, SELFPAY ==
[2024-05-26 13:08] VITALS: BMI 31.8
== END 2024-08-24 09:19 | disposition home or self-care (01) ==
LOC: ANHDMC 13:05
PROVIDERS: PCP Family Medicine; Visit Provider Physician Assistant Medical
DX: R73.01 Impaired fasting glucose (principal); E66.01 Morbid (severe) obesity due to excess calories; Z71.3 Dietary counseling and surveillance
CPT/HCPCS: 97803

== ENCOUNTER 2024-09-08 18:58 | Emergency (ER) | payer BC, SELFPAY ==
--- NOTE | ~2024-09-08 | XR_ITS ---
CHEST RADIOGRAPH, PA AND LATERAL CLINICAL HISTORY: cough congestion sob 1 week nonsmoker hx pneumonia bronchitis . COMPARISON: 08/28/2023 TECHNIQUE: PA and lateral views of the chest. FINDINGS The cardiomediastinal silhouette is unremarkable. The lungs are clear. IMPRESSION: No focal infiltrate or effusion. Reviewed, dictated and finalized at location A.
--- NOTE | 2024-09-08 19:03 | ED.URI ---
HPI - URI/Sore Throat General Chief Complaint: Upper Respiratory Infection Stated Complaint: Cough/Chest Congestion/SOB Source: patient and RN notes reviewed Mode of arrival: ambulatory Limitations: no limitations History of Present Illness HPI Narrative: Patient is a 59-year-old female who presents to the [facility] with complaints of frequent nonproductive cough for the past week. She states that the cough continues to worsen in severity. She denies chest pain but reports chest congestion. States that she will have some mild shortness of breath that accompanies the cough but it is not present at this time. She reports mild nasal congestion. States that she believes that she may have had a mild fever a couple days ago. Her respirations are nonlabored and she does not appear in any acute distress. Related Data Home Medications ?Medication ?Instructions ?Recorded ?Confirmed ?Last Taken ?Type levocetirizine 5 mg tablet (Xyzal) 5 mg PO DAILY 06/07/22 09/08/24 Unknown History Allergies Allergy/AdvReac Type Severity Reaction Status Date / Time pantoprazole AdvReac Intermediate Insomnia Verified 09/08/24 19:10 lisinopril AdvReac Mild Cough Verified 09/08/24 19:10 Review of Systems Review of Systems: CONSTITUTIONAL: Reports fever. EYES: Denies visual changes, redness, or discharge. ENT: Denies otalgia and sore throat. Reports congestion CARDIOVASCULAR: Denies chest pain, palpitations, or edema. RESPIRATORY: Reports cough and dyspnea. GASTROINTESTINAL: Denies abdominal pain, nausea, vomiting, or diarrhea. GENITOURINARY: Denies dysuria or hematuria. SKIN: Denies rash or itching. MUSCULOSKELETAL: Denies back pain, joint pain, or myalgia. NEUROLOGIC: Denies headache, numbness, or weakness. Pertinent positives per HPI. [facility] Past Medical History Medical History Oropharyngeal dysphagia Obesity Obese Adenomatous colon polyp Globus pharyngeus Deep vein thrombosis (DVT) of calf muscle vein of right lower extremity Functional dyspepsia Achilles tendonitis Pure hyperglyceridemia Chronic insomnia SOB (shortness of breath) Pneumonia Fatigue (~12/23/22) IFG (impaired fasting glucose) HLD (hyperlipidemia) HTN (hypertension) Surgical History Surgical History History of bladder surgery History of hysterectomy History of tonsillectomy History of History of foot surgery right foot- bone spurs S/P hemorrhoidectomy Family History Family History Mother Family history of blood dyscrasia Hypertension Family history of malignant neoplasm of kidney Cerebrovascular accident Family history of arthritis Family history of malignant neoplasm Sibling Family history of blood dyscrasia Father Hypertension Family history of arthritis Family history of malignant neoplasm of kidney Family history of malignant neoplasm Other Family history of arthritis Social History Social History Social History: Smoking status: Never smoker Second hand tobacco smoke exposure: No Alcohol intake: current Alcohol use details: rarely Substance use: never Substance use type: does not use Do You Feel Safe in your Home?: Yes Lack of Transportation: No Lack of Food: Never True Current Housing: I Have Housing Concerned About Future Housing: No Difficulty Paying Gas/Electric Bills: No Difficulty Paying for Meds: No Currently Unemployed: YES Education: High School Diploma/GED Difficulty w/ Childcare or Family Care: No Living arrangements: with family Occupation/Education: occupation Gender identity (if verbalized by the patient): Female Sexual Orientation (if Verbalized by the Patient): Straight or Heterosexual Spiritual care concerns: No Comments At the time of my signature, I reviewed and agree with the nursing past medical, surgical, social, and family history. There is no relevant family history pertinent to the patient complaint. Exam Narrative: GENERAL: This is a well-nourished, well-developed patient, in no apparent distress. HEAD: normocephalic, atraumatic. EYES: Sclera clear/white. Vision is grossly intact. EARS: External ears normal. Hearing grossly intact. NOSE: External nose normal with no obvious nasal discharge, nares without redness, no rhinorrhea. THROAT: Mucous membranes moist, posterior pharynx clear. NECK: Neck supple, non-tender without lymphadenopathy, masses or thyromegaly. CARDIOVASCULAR: Regular rate and rhythm without murmurs, gallops, or rubs. RESPIRATORY: Clear to auscultation. Breath sounds equal bilaterally. No wheezes, rales, or rhonchi. GASTROINTESTINAL: Abdomen soft, non-tender, nondistended. Bowel sounds are active. No hepato-splenomegaly, or palpable masses. No guarding. SKIN: warm, intact with no suspicious lesions or rash, good texture and turgor. NEURO: awake, alert, and oriented to person, place and time. There were no obvious focal neurologic abnormalities. Course Course Level of Care: Express Care Visit Vital Signs Vital signs: Vital Signs Temperature 98.7 F 09/08/24 19:05 Pulse Rate 78 09/08/24 19:05 Respiratory Rate 18 09/08/24 19:05 Blood Pressure 113/74 09/08/24 19:05 Pulse Oximetry 100 09/08/24 19:05 Oxygen Delivery Room Air 09/08/24 19:05 Temperature 98.7 F 09/08/24 19:05 Pulse Rate 78 09/08/24 19:05 Respiratory Rate 18 09/08/24 19:05 Blood Pressure 113/74 09/08/24 19:05 Pulse Oximetry 100 09/08/24 19:05 Oxygen Delivery Room Air 09/08/24 19:05 Reviewed MDM - URI/Sore Throat MDM Narrative Medical decision making narrative: Take steroids as directed. May use the inhaler every 4-6 hours as needed for coughing. Increase fluids at home. Avoid any and all smoke. May use a humidifier in the bedroom. Increase your Vitamin C. Follow-up with personal physician in 2-5 days. Differential Diagnosis Differential diagnosis: Likely upper respiratory infection, viral infection, bronchitis and other ( pneumonia) Imaging Data Attestation: I personally reviewed and interpreted this imaging study as follows: Radiologist's impression: Close Chest X-Ray (Signed) Stacy Acevedo - 09/08/24 Launch?[facility] [address] [place] [address] XRay Report Signed Patient: Nayely Andre : 1965 MR#: [id number] Age: 59 Acct:[id number] Loc: [id number] ADM Date: 09/08/24Attending Dr: Ordering Physician: Reba Davey APRN Date of Service: 09/08/24 Procedure(s): XR chest 2V Accession Number(s): [id number] cc: Reba Davey APRN; Rolo Cadena MD~ CHEST RADIOGRAPH, PA AND LATERAL CLINICAL HISTORY: cough congestion sob 1 week nonsmoker hx pneumonia bronchitis . COMPARISON: 08/28/2023 TECHNIQUE: PA and lateral views of the chest. FINDINGS The cardiomediastinal silhouette is unremarkable. The lungs are clear. IMPRESSION: No focal infiltrate or effusion. Reviewed, dictated and finalized at location A. Please be advised this is a medical document. It is intended for [id number] communication. It is written in medical language and may contain unfamiliar abbreviations or verbiage. Medical documents are intended to carry relevant information, facts as evident, and the clinical opinion of the practitioner at the time of the encounter. This report may have been done utilizing a voice recognition system. Attempts have been made to correct errors. However, there may be uncorrected grammatical, spelling, and recognition errors present. The file time of this note does not necessarily represent the time of service. Dictated By: Stacy Acevedo MD 09/08/241945 Signed By: <Electronically signed by Stacy Acevedo MD in OV> 09/08/241947 Critical Care Time Critical Care Time Critical Care Time: No Discharge Plan Discharge Clinical Impression: Acute viral bronchitis Patient Disposition: Home Condition: Stable Instructions: Acute Bronchitis (ED) Additional Instructions: Take steroids as directed. May use the inhaler every 4-6 hours as needed for coughing. Increase fluids at home. Avoid any and all smoke. May use a humidifier in the bedroom. Increase your Vitamin C. Follow-up with personal physician in 2-5 days. Patient Language: South Sudanese Prescriptions: New prednisone 50 mg tablet 50 mg PO DAILY 5 Days Qty: 5 0RF albuterol sulfate [Ventolin HFA] 90 mcg/actuation HFA aerosol inhaler 2 puff inhalation QID PRN (Reason: shortness of breath or wheezing) Qty: 8.5 0RF No Action albuterol sulfate 90 mcg/actuation HFA aerosol inhaler 1 inh inhalation QID PRN (Reason: shortness of breath or wheezing) Qty: 8.5 0RF Pulmicort Flexhaler 90 mcg/actuation aerosol powdr breath activated 1 inh inhalation Q12H Qty: 1 5RF levocetirizine [Xyzal] 5 mg tablet 5 mg PO DAILY amlodipine 5 mg tablet 5 mg PO DAILY Qty: 90 3RF losartan 100 mg tablet See Rx Instructions .ROUTE .COMPLEX Qty: 90 3RF Dose Instruction: TAKE 1 TABLET BY MOUTH DAILY Rx Instructions: TAKE 1 TABLET BY MOUTH DAILY hydrochlorothiazide 25 mg tablet 25 mg PO DAILY Qty: 90 3RF zolpidem [Ambien CR] 6.25 mg tablet,ext release multiphase 6.25 mg PO QHS PRN (Reason: insomnia) Qty: 30 0RF Follow-up/Referrals: Rolo Cadena MD [Primary Care Provider] - Time of Disposition: 19:52
[2024-09-08 19:05] VITALS: BP 113/74; PULSE 78; RESP 18; TEMP 37.1; O2SAT 100
== END 2024-09-08 19:54 | disposition home or self-care (01) ==
PROVIDERS: Emergency Provider Nurse Practitioner; PCP Family Medicine
DX: J20.8 Acute bronchitis due to other specified organisms (principal); I10 Essential (primary) hypertension; E78.5 Hyperlipidemia, unspecified; R73.01 Impaired fasting glucose; E78.1 Pure hyperglyceridemia; E66.9 Obesity, unspecified; Z68.31 Body mass index [BMI] 31.0-31.9, adult; Z86.718 Personal history of other venous thrombosis and embolism
CPT/HCPCS: 71046; 99213; G0463

== ENCOUNTER 2025-02-25 15:04 | Emergency (ER) | payer BC, SELFPAY ==
[2025-02-25 15:16] VITALS: BP 129/83; PULSE 78; RESP 16; TEMP 36.6; O2SAT 98
--- NOTE | 2025-02-25 15:22 | ED.NECK ---
HPI - Neck Pain/Injury General Chief Complaint: Neck Pain/Injury Stated Complaint: NECK/SHOULDER PAIN Time Seen by Provider: 02/25/25 15:20 Source: patient Mode of arrival: ambulatory Limitations: no limitations History of Present Illness HPI Narrative: Nayely is a 59-year-old female patient presenting to the clinic today with complaints of neck and right-sided shoulder pain. Reports symptoms started on Thanksgiving when she was bending over cooking, symptoms worsened as she was raking leaves and then shoveling snow over the last week. States she is having pain and tightness to the right lower side of her neck and over the trapezius musculature had no radiation of pain down her right arm. Good strong hand grasp bilaterally. Has been applying Aspercreme, heating pad, took old prescription of baclofen, has been taking Tylenol Motrin for her symptoms. Rates pain 11/01 currently. Related Data Home Medications ?Medication ?Instructions ?Recorded ?Confirmed ?Last Taken ?Type levocetirizine 5 mg tablet (Xyzal) 5 mg PO DAILY 06/07/22 09/21/24 Unknown History doxycycline hyclate 20 mg tablet mg 02/25/25 Unknown History vibegron 75 mg tablet (Gemtesa) mg 02/25/25 Unknown History Allergies Allergy/AdvReac Type Severity Reaction Status Date / Time pantoprazole AdvReac Intermediate Insomnia Verified 02/25/25 15:16 lisinopril AdvReac Mild Cough Verified 02/25/25 15:16 Review of Systems Review of Systems: Pertinent positives per HPI. Patient denies any fever, chills, rash, headache, visual changes, dizziness, cough, shortness of breath, chest pain, palpitations, nausea, vomiting, diarrhea, constipation, abdominal pain, or any urinary issues. [facility] Past Medical History Medical History Oropharyngeal dysphagia Obesity Obese Adenomatous colon polyp Globus pharyngeus Deep vein thrombosis (DVT) of calf muscle vein of right lower extremity Functional dyspepsia Achilles tendonitis Pure hyperglyceridemia Chronic insomnia SOB (shortness of breath) Pneumonia Fatigue (~12/23/22) IFG (impaired fasting glucose) HLD (hyperlipidemia) HTN (hypertension) Surgical History Surgical History History of bladder surgery History of hysterectomy History of tonsillectomy History of History of foot surgery right foot- bone spurs S/P hemorrhoidectomy Family History Family History Mother Family history of blood dyscrasia Hypertension Family history of malignant neoplasm of kidney Cerebrovascular accident Family history of arthritis Family history of malignant neoplasm Sibling Family history of blood dyscrasia Father Hypertension Family history of arthritis Family history of malignant neoplasm of kidney Family history of malignant neoplasm Other Family history of arthritis Social History Social History Social History: Smoking status: Never smoker Second hand tobacco smoke exposure: No Alcohol intake: current Alcohol use details: rarely Substance use: never Substance use type: does not use Lack of Transportation: No Lack of Food: Never True Current Housing: I Have Housing Concerned About Future Housing: No Difficulty Paying Gas/Electric Bills: No Difficulty Paying for Meds: No Currently Unemployed: YES Education: High School Diploma/GED Difficulty w/ Childcare or Family Care: No Living arrangements: with family Occupation/Education: occupation Gender identity (if verbalized by the patient): Female Sexual Orientation (if Verbalized by the Patient): Straight or Heterosexual Spiritual care concerns: No Comments At the time of my signature, I reviewed and agree with the nursing past medical, surgical, social, and family history. There is no relevant family history pertinent to the patient complaint. Exam Narrative: General: Well-developed, obese, in no apparent distress Head: Normocephalic, atraumatic. Cardio: Regular rate and rhythm, s1 and s2 normal, no murmur appreciated. Resp: Clear to auscultation bilaterally, no rhonchi, rales, wheezing or rubs. Musculoskeletal: No deformity,tender to palpation over the right lateral cervical spine/trapezius musculature, pain with raising arm above head over the right lateral cervical spine trapezius musculature, unable to hyperextend or flex her neck without pain, pain with turning head to the left against resistance, muscle strength strong and equal, peripheral pulse strong, no edema, no cyanosis, normal gait and station Course Course Level of Care: Express Care Visit Vital Signs Vital signs: Vital Signs Temperature 36.6 C 02/25/25 15:16 Pulse Rate 78 02/25/25 15:16 Respiratory Rate 16 02/25/25 15:16 Blood Pressure 129/83 02/25/25 15:16 Pulse Oximetry 98 02/25/25 15:16 Temperature 36.6 C 02/25/25 15:16 Pulse Rate 78 02/25/25 15:16 Respiratory Rate 16 02/25/25 15:16 Blood Pressure 129/83 02/25/25 15:16 Pulse Oximetry 98 02/25/25 15:16 [facility] MDM Narrative Medical decision making narrative: At the time of visit patient is resting comfortably on the exam table. Patient appears to be nontoxic. Complaints of neck and right-sided shoulder pain. Reports symptoms started on Thanksgiving when she was bending over cooking, symptoms worsened as she was raking leaves and then shoveling snow over the last week. States she is having pain and tightness to the right lower side of her neck and over the trapezius musculature had no radiation of pain down her right arm. Good strong hand grasp bilaterally. Rates pain 8 out 10 currently. Has been applying Aspercreme, heating pad, took old prescription of baclofen, has been taking Tylenol Motrin for her symptoms. On exam patient has tender to palpation over the right lateral cervical spine/trapezius musculature, pain with raising arm above head over the right lateral cervical spine trapezius musculature, unable to hyperextend or flex her neck without pain, pain with turning head to the left against resistance. Offered Toradol 60 mg IM and patient agrees. Medications: Toradol 60 mg IM given in the clinic today-pain down to a 5/10 at the time of discharge Plan: I suspect patient has trapezius muscle strain of the cervical spine/trapezius musculature. Toradol 60 mg IM given in the clinic today for pain. Medrol Dosepak and cyclobenzaprine description was sent to the pharmacy. Supportive measures were discussed with the patient and they voiced understanding discharge instructions and agrees to treatment plan. Return precautions reviewed Differential Diagnosis Differential Diagnosis: Differential diagnostic considerations for neck injury/pain include disc disorder of cervical region, whiplash injury to neck, closed subluxation of cervical spine, fracture of cervical spine without lesion of spinal cord, cervical radiculopathy, vertebral artery dissection torticollis, cervical spondylosis, strain of neck muscle. Discharge Plan Discharge Clinical Impression: Strain of cervical portion of right trapezius muscle Patient Disposition: Home Condition: Stable Instructions: Antibiotic Form, Cervical Strain (ED), Muscle Strain (ED) Additional Instructions: Toradol 60 mg IM given in the clinic today Take any prescription medication only as prescribed-Medrol Dosepak and Flexeril Be mindful of sedation precautions given to you if taking a muscle relaxer. May use heat or ice to the affected area Consider massage or chiropractor adjustment if this was discussed with provider May use blue emu, lidocaine patches, or asper cream to affected area- do not apply heat or ice directly over cream- can cause burn. Complete appropriate neck stretching exercises. Follow up with your PCP in 3-5 days if symptom persist. Patient Language: Pashto Prescriptions: New methylprednisolone [Medrol (Erasmo)] 4 mg tablets,dose pack See Rx Instructions PO .COMPLEX Qty: 21 0RF Rx Instructions: orally per package directions cyclobenzaprine 10 mg tablet 10 mg PO Q8H PRN (Reason: muscle spasm) 7 Days Qty: 21 0RF No Action albuterol sulfate [Ventolin HFA] 90 mcg/actuation HFA aerosol inhaler 2 puff inhalation QID PRN (Reason: shortness of breath or wheezing) Qty: 8.5 0RF doxycycline hyclate 20 mg tablet Gemtesa 75 mg tablet albuterol sulfate 90 mcg/actuation HFA aerosol inhaler 1 inh inhalation QID PRN (Reason: shortness of breath or wheezing) Qty: 8.5 0RF Pulmicort Flexhaler 90 mcg/actuation aerosol powdr breath activated 1 inh inhalation Q12H Qty: 1 5RF levocetirizine [Xyzal] 5 mg tablet 5 mg PO DAILY zolpidem [Ambien CR] 6.25 mg tablet,ext release multiphase 6.25 mg PO QHS PRN (Reason: insomnia) Qty: 30 0RF hydrochlorothiazide 25 mg tablet 25 mg PO DAILY Qty: 90 2RF losartan 100 mg tablet See Rx Instructions .ROUTE .COMPLEX Qty: 90 2RF Dose Instruction: TAKE 1 TABLET BY MOUTH DAILY Rx Instructions: TAKE 1 TABLET BY MOUTH DAILY amlodipine 5 mg tablet 5 mg PO DAILY Qty: 90 3RF Follow-up/Referrals: Rolo Cadena MD [Primary Care Provider, Family Practice] Time of Disposition: 15:27 Quality NIHSS Nursing Documentation ED NIHSS nursing documentation: reviewed/agree
[2025-02-25] MEDS: KETOROLAC (*BKC) 60 MG/2 ML VIAL IM (15:32)
== END 2025-02-25 16:08 | disposition home or self-care (01) ==
PROVIDERS: Emergency Provider Nurse Practitioner Family; PCP Family Medicine
DX: S16.1XXA Strain of muscle, fascia and tendon at neck level, initial encounter (principal); X50.1XXA Overexertion from prolonged static or awkward postures, initial encounter; Y93.G3 Activity, cooking and baking; I10 Essential (primary) hypertension; E78.5 Hyperlipidemia, unspecified; R73.01 Impaired fasting glucose; E78.1 Pure hyperglyceridemia; E66.9 Obesity, unspecified; Z68.34 Body mass index [BMI] 34.0-34.9, adult; Z86.718 Personal history of other venous thrombosis and embolism
CPT/HCPCS: 96372; 99213; G0463; J1885

== ENCOUNTER 2025-03-08 13:45 | Outpatient (CLI) | payer BC, SELFPAY ==
--- NOTE | ~2025-03-08 | US_ITS ---
EXAM/PROCEDURE: US axilla LT HISTORY: R59.0 - Localized enlarged lymph nodes COMPARISON: None available. TECHNIQUE: Directed evaluation of the left axillary region. FINDINGS: 2.5 x 1.4 x 1.4 cm lymph node noted in the left axillary region. No other mass seen. No drainable fluid collection. IMPRESSION: 2.5 x 1.4 x 1.4 cm left axillary lymph node. The size of the lymph node is borderline pathologic. Query if patient has known history of upper extremity infection, lymphoproliferative process or malignancy. Reviewed, dictated and finalized at location A. ITY TECHNICIAN IMPRESSION: 2.5 x 1.4 x 1.4 cm left axillary lymph node. The size of the lymph node is bord shelia pathologic. Query if patient has known history of upper extremity infect ion, lymphoproliferative process or malignancy.
--- NOTE | ~2025-03-08 | MM_ITS ---
EXAMINATION: MM screening maribell BI w gopi HISTORY: Screening TECHNIQUE: Craniocaudal and mediolateral oblique 3-D tomosynthesis images were obtained and synthetic 2-D images were generated. CAD analysis was submitted and interpreted. COMPARISON: Comparison to multiple prior studies sequentially, with oldest reviewed study dated , 02/10/2019 BREAST PARENCHYMAL COMPOSITION: Not Dense: There are scattered areas of fibroglandular density. FINDINGS: There is no evidence of suspicious mass, calcification, or architectural distortion to suggest malignancy in either breast. IMPRESSION: 1. No mammographic evidence of malignancy. 2. Recommend routine screening mammography in one year. BI-RADS Category 1: Negative Reviewed, dictated and finalized at location A. INATION WELDER APPRENTICE
== END 2025-03-08 13:46 | disposition home or self-care (01) ==
LOC: CHSIMG 13:47
PROVIDERS: PCP Family Medicine; Visit Provider Surgery
DX: Z12.31 Encounter for screening mammogram for malignant neoplasm of breast (principal); R59.0 Localized enlarged lymph nodes
CPT/HCPCS: 76882; 77063; 77067

== ENCOUNTER 2025-03-15 16:03 | Outpatient (CLI) | payer BC, SELFPAY ==
--- NOTE | ~2025-03-15 | XR_ITS ---
[id number] 03/15/2025 16:17 Indication: Cervicalgia Procedure: 4 view cervical spine Comparison: No prior studies for comparison. Findings: There is mild disc narrowing at C5-6. Odontoid process is normal. There is uncinate hypertrophy at C4-5, C5-6 and C6-7. Lung apices are normal. Odontoid process is normal. Lateral masses normally aligned. No evidence for perched facet. No prevertebral soft tissue swelling. Impression: 1: Moderate cervical spondylosis. Reviewed, dictated and finalized at location O. R Impression: 1: Moderate cervical spondylosis.
== END 2025-03-15 16:04 | disposition home or self-care (01) ==
PROVIDERS: PCP Family Medicine; Visit Provider Student in an Organized Health Care Education/Training Program
DX: M47.892 Other spondylosis, cervical region (principal)
CPT/HCPCS: 72040

== ENCOUNTER 2025-03-16 11:45 | Emergency (ER) | payer BC, SELFPAY ==
[2025-03-16 11:48] VITALS: BP 142/69; PULSE 88; RESP 16; TEMP 36.6; O2SAT 99
--- NOTE | 2025-03-16 11:50 | PC.NURSE ---
Triage process explained to patient. Patient informed that this RN would like to do an EKG on her while she waited for a room in the back. Patient rolled her eyes. This RN explained that because of her R neck/shoulder/arm pain that is not improving with what she has previously been doing there is a concern for an underlying cardiac issue. Patient informed she could refuse the EKG if she would like. Patient responded, Whatever. I don't care. Patient to lobby in stable condition.
--- NOTE | 2025-03-16 11:52 | ECG_ITS ---
Test Date: 2025-03-16 12:05:18 Measurements Intervals [place] Rate: 76 P: 31 ME: 162 QRS: 5 QRSD: 97 T: 1 QT: 375 QTc: 423 Interpretive Statements SINUS RHYTHM INCOMPLETE RIGHT BUNDLE BRANCH BLOCK LOW QRS VOLTAGE IN PRECORDIAL LEADS BORDERLINE T WAVE ABNORMALITY- INFERIOR LEADS BORDERLINE ECG No previous ECG available for comparison Electronically Signed On 03-16-2025 12:28:40 VETERINARIAN HELPER by Tad Cardenas D.O.
--- OUTSIDE RECORDS SUMMARY | 2025-03-16 12:01 | XMS_ITS | Data Portability ---
Author Organization [facility], [facility] [place] [address] Assessment No assessment recorded. Plan of Treatment Reminders Order Date Submit Date Provider Last Modified By Organization Details Last Modified Time Details Appointments None record ed. Lab None record ed. Referral None record ed. Procedures None record ed. Surgeries None record ed. Imaging None record ed. Medication Orders None record ed. Patient TargetsNo targets recorded. Patient Instructions Encounter Date Encounter Id Patient Instructions Last Modified By Organization Details Last Modified Time 09/05/2018 [id number] cuts closed with adhesives: care instructions [email or web address] Not available 09/05/2018 17:35:16 Follow up if any significant redness, drainage or pain develops or if the wound opens up. keep clean and dry. [email or web address] Not available 09/05/2018 17:35:16 Reason for Referral None Reported. Procedures Surgical History Date Name Laterality Status Provider Name and Address Organization Details Recorded Time 09/06/19 19 Laceration repair with glue completed Ghazala Aldana MD [address] [facility], [place], [address], [facility] 09/05/2018 17:34:28 Imaging Results None recorded. Procedure Notes None recorded. Medical Equipment None Reported. Allergies No known drug allergies Medications Name Sig Start Date Stop Date Status Note LastModified by Organization Details LastModified Time losartan 50 mg tablet active Not Available Not Available No t Available urea 40 % topical cream 09/05 completed Not Available Not Available Not Available amlodipine 5 mg tablet TK 1 T PO QD active Not Available Not Available No t Available terbinafine HCl 250 mg tablet 09/05 completed Not Available Not Available Not Available amlodipine 10 mg tablet TK 1 T PO QD active Not Available Not Available No t Available doxycycline hyclate 20 mg tablet TK 1 T PO BID OES 09/05 completed Not Available Not Available Not Available losartan 100 mg tablet TK 1 T PO QD active Not Available Not Available No t Available clindamycin phosphate 1 % topical solution 09/05 completed Not Available Not Available Not Available doxycycline hyclate active Not Available Not Available Not Available hydrochloro thiazide 12.5 mg tablet active Not Available Not Available Not Available diclofenac 1 % topical gel active Not Available Not Available Not Available Onexton 1.2 % (1 % base)-3.75 % topical gel with pump active Not Available Not Available Not Available Shingrix (PF) 50 mcg/0.5 mL intramuscul ar suspension, kit TO BE ADMINISTE RED BY PHARMACIS T FOR IMMUNIZAT ION active Not Available Not Available No t Available Fluzone Quad (PF) 60 mcg(15 mcgx4)/0.5 mL intramuscul ar syringe ADM 0.5ML IM UTD active Not Available Not Available No t Available Vitals Date Recorded Heart rate Oxygen saturation Respiratory rate Pain severity - 0-10 verbal numeric rating [Score] - Reported Body temperature Body height Body mass index (BMI) Body weight Systolic And Diastolic Provider Name and Address Organization Details Last Updated DateTime 9 87 /min 99 % 16 /min 0 98 [degF] 172.72 cm 37.9 kg/m2 367119 g 135/86 mm[Hg] MILLIE REARDON, RN [facility] 9 16:48:56 Social History Question Answer Notes LastModified by Organizat ion Details LastModified Time Tobacco Smoking Status Never Smoker MILLIE REARDON, RN null, [facility] 09/05/2018 16:57:41 Have You Fallen In The Last 6 Months No [email or web address] Information not available 09/05/2018 Do You Feel Safe At Home? Yes [email or web address] Information not available 09/05/2018 Does The Patient Exhibit Any Signs Of Depression Or Anxiety? No [email or web address] Information not available 09/05/2018 What Was The Date Of Your Most Recent Tobacco Screening? 09/05/2018 Information not available 10/17/2018 Are There Any Smokers In Your House? No [email or web address] Information not available 09/05/2018 Do You Have Difficulty Walking Or Climbing Stairs? No [email or web address] Information not available 09/05/2018 Sex: Unknown Functional Status None recorded. Mental Status None recorded. Family History Nothing Reported. Medical History Condition Response HYPERTENSION Y Gynecological HistoryNo gynecological history recorded. Obstetrics History GPAL:G 0 P 0 0 0 0 Past Encounters Encounter ID Performer Location Encounter Start Date Encounter Closed Date Diagnosis/Indication Diagnosis SNOMED-CT Code Diagnosis ICD10 Code Diagnosis IMO Codes Diagnosis Note [id number] Ghazala Aldana MD [facility] [address] [place] [address] 09/05/2018 16:24:24 09/05/2018 17:39:14 Laceration of right thigh [id number] S71.111A Health Concerns Section Related Observation LastModified by Organization Detai ls LastModified Time None Recorded Concern Status LastModified by Organization Details LastModified Time None Recorded Advance Directives Directive None Recorded Payers Insurance Date Sequence Insurance Name Policy Number Policy [place] Covered Member ID [place] Member ID Guarantor Name 09/05/2018 1 [employer] [id number] Nayely Jes [id number] Nayely Andre Notes Date Note Type Note Provider Name a nd Address Organization Details Recorded Time 09/05/2018 text/html ROS as noted in the HPI Right thigh laceration with a seam ripper through her jeans earlier this afternoon.Bleedi ng has mostly stopped.No other injuries.ROS done by [email or web address] Ghazala Aldana MD [address] [place], [address], [place] [facility] 09/05/2018 17:36:18 OBGyn Episode No OBEpisode recorded.
--- OUTSIDE RECORDS SUMMARY | 2025-03-16 12:01 | XMS_ITS | Clinical Summary ---
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 Name Role Phone Rolo Cadena MD Primary Care Provider Allergies Active Allergy Reactions Criticality Noted Date Comments Hydrocodone Anxiety Low 04/05/2020 Lisinopril Cough Low 04/05/2020 Medications amLODIPine (NORVASC) 10 mg tablet Take 1 tablet (10 mg total) by mouth daily 03/17/2020 Active hydroCHLOROthia zide (HYDRODIURIL) 25 mg tablet Take 1 tablet (25 mg total) by mouth daily 03/17/2020 Active losartan (COZAAR) 100 mg tablet Take 1 tablet (100 mg total) by mouth daily 03/17/[address] (ACIPHEX) 20 mg EC tablet Take 1 tablet (20 mg total) by mouth daily Active Gemtesa 75 mg tablet Take 1 tablet by mouth nightly at bedtime. 01/07/2023 Active Active Problems No known active problems Surgical History Surgery Date Site/Laterality Comments ANKLE SURGERY Medical History Medical History Date Comments HTN (hypertension) GERD (gastroesophageal reflux disease) Insomnia HLD (hyperlipidemia) Cough Social History Tobacco Use Types Packs/Day Years Used Date Smoking Tobacco: Never Assessed Personal Safety Answer Date Recorded Have you ever been in or are you currently in a harmful physical or emotional relationship or is someone making you feel afraid or unsafe? Denies 06/11/2022 Comments Unknown Sex and Gender Information Value Date Recorded Sex Assigned at Not on file Legal Sex Female 8:14 AM BIOPHARMACEUTICAL REP Gender Identity Not on file Sexual Orientation Not on file Last Filed Vital Signs Vital Sign Reading Time Taken Comments Blood Pressure 124/89 03/23/2023 9:28 AM BIOPHARMACEUTICAL REP Pulse 91 03/23/2023 9:28 AM BIOPHARMACEUTICAL REP Temperature 36.5 C (97.7 F) 03/23/2023 9:28 AM BIOPHARMACEUTICAL REP Respiratory Rate 14 03/23/2023 9:28 AM BIOPHARMACEUTICAL REP Oxygen Saturation 98% 03/23/2023 9:28 AM BIOPHARMACEUTICAL REP Inhaled Oxygen Concentration - - Weight 113.4 kg (250 lb) 04/07/2020 7:35 AM BIOPHARMACEUTICAL REP Height 172.7 cm (5' 8) 03/23/2023 9:28 AM BIOPHARMACEUTICAL REP Body Mass Index 38.01 04/07/2020 7:35 AM BIOPHARMACEUTICAL REP Plan of Treatment Health Maintenance Due Date Last Done Comments Breast Cancer Screening-Mammogram 1965 Cervical Cancer Screening 1965 Colon Cancer Screening-Colonoscopy 1965 Depression Screening 1965 Hepatitis C Screening 1965 Hepatitis B Screening 08/13/1983 Regular Well Visit/Exam 18-64 08/13/1983 Covid-19 Vaccine ( season) 2024 10/01/2021, 03/16/2021, 05/27/2020 Influenza Vaccine (#1) 2024 2, 12/06/2020, 12/09/2019, Additional history exists DTaP/Tdap/Td Vaccine (2 - Td or Tdap) 09/07/2026 09/07/2016 Zoster Vaccine Completed 05/07/2018, 12/24/2017 Pneumococcal vaccine <65 Aged Out No longer eligible based on patient's age to complete this topic Insurance [facility] OPEN ACCESS [employer] ACCESS OOS [email or web address] OOS Care Teams Fish Flipper Relationship Specialty Start Date End Date Rolo Cadena MD [address] [address] PCP - General 04/07/20
--- OUTSIDE RECORDS SUMMARY | 2025-03-16 12:01 | XMS_ITS | Data Portability ---
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 Patient will come back in a year unless there are new symptoms. Not available 09/24/2023 12:12:02 10/22/2023 10/22/2023 No charge visit [email or web address] Not availab le 10/22/2023 15:01:04 Plan of Treatment Reminders Order Date Submit Date Provider Last Modified By Organization Details Last Modified Time Details Appointments None recorded. Lab None recorded. Referral None recorded. Procedures None recorded. Surgeries None recorded. Imaging US, pelvis 2023 024 [email or web address] [place], [address], [place], [address], 22:38:19 US, transvagina l 2023 024 [email or web address] [place], [address], [place], [address], 4 22:38:19 MAMMO, diagnostic, digital, bilateral 2023 [facility], [address], [place], [address], 5 05:01:03 US, breast, unilateral, w/ axilla - left 2023 024 [facility], [address], [place], [address], 4 12:19:27 US, pelvis, complete 2023 [facility], [address], [place], [address], 5 05:01:03 Medication Orders None recorded. Patient TargetsNo targets recorded. Patient InstructionsNo instructions recorded. Reason for Referral None Reported. Results Created Date Observation Date Name Description Value Unit Range Abnormal Flag Note LastModifiedBy Organization Detail LastModifiedTime 10/22/19 24 10/22/2023 IMAGE GUIDE D PAP AND HPV REGAR DLESS image guided Pap, HPV regardless of Pap result SEE RESULT S BELOW CASE REPOR T: Cytol ogy Gynec ologi rafael Repor t Case: [id number] Autho jaimie rose Provi ryan: Rodrigo Menendez MD Colle cted: 10/21 1410 Order ing Locat ion: [place] [facility] Recei [place]: 10/22 0130 First Scree n: McBradria de, Malgorzata ret, CT Speci men: Scree britney Pap - Image d, Cervi x STATE MENT OF ADEQU ACY: Satis facto ry for evalu ation Trans forma tion zone compo nent canno t be defin itive ly ident ified due to the prese nce of atrop hy or other hormo nal jean es Parti ally obscu ring infla mmati on prese nt. ----- ----- ----- ----- ----- ----- ----- ----- ----- ----- ----- ----- ----- ----- ----- ----- ----- ---- FINAL DIAGN OSIS: Negat patty for Intra epith elial Lesedmundo alonso or Henry grewal (NIL) . Atrop hic cell steve walters. Elect connie mayorga by Malgorzata Burton ret, CT on 024 at 7:20 AM ----- ----- ----- ----- ----- ----- ----- ----- ----- ----- ----- ----- ----- ----- ----- ----- ----- ---- HPV RESUL TS: HPV mRNA E6/E7 : No HPV mRNA Detec isis NOTE: This high risk HPV mRNA assay detec ts fourt een high- risk HPV types (16, 18, 31, 33, 35, 39, 45, 51, 52, 56, 58, 59, 66, 68) witho ut diffe renti ation . COMME NT: This speci men was revie wed by a Cytot echno logis t and/o r Patho logis t (as indic ated in this repor t) after evalu ation using the Thinp rep Imagi ng Syste m. CLINI RAFAEL INFOR MATIO N: Menst rual Statu s: LMP (if appli cable ): Clini rafael Histo ry/Pr eviou s Pap: Type of Neopl cindi (if appli cable ): Signi arnel t Clini rafael Findi ngs: Other Histo ry: Hormo liz (if appli cable ): PAP EDUCA HERIBERTO L NOTE: The Pap Test is a scree britney test with an inher ent false negat patty rate. Liqui d-bas ed sampl ing may decre ase, but will not elimi naomi, false negat patty resul ts. A negat patty resul t does not precl ude the prese nce and/o r devel opmen t of disea se, since the prese nce of abnor mal cells in the sampl e depen ds on the locat ion of the lesio n and sampl ing techn ique. Ashley nued regul ar scree britney is the best metho d of cance r preve ntion . If repor isis cytol ogic findi ng do not corre late with physi rafael and/o r histo rical findi ngs, furth er inves tigat ion is recom nina d, as clini london warra nted. Not Available [facility] (Lab) [address], [place], [address], 10/29/2023 08:25:28 09/30/19 24 09/30/2023 US, pelvi s No observ ation record ed. [email or web address] [place] [address] [facility], [place], [address], 09/30/2023 12:54:44 09/30/19 24 09/30/2023 US, trans vagin al No observ ation record ed. [email or web address] [place] [address] [facility] [address], [place], [address], 09/30/2023 12:54:32 09/30/19 24 09/30/2023 US, pelvi s No observ ation record ed. samuel Worthington [address], [place], [address], 10/10/2023 09:03:40 10/22/19 24 10/22/2023 US, ghanshyam rivas, billie tobin , w/ ronit avila No observ ation record ed. LIS [place] [facility] [address] [place] [place] [address], [place], [address], 11/11/2023 04:11:10 Result Notes None recorded. Problems Name Problem SNOMED Code Status Onset Date Resolution Date Notes Provider Name and Address Organization Details Recorded Time Vaginal hysterec ismael Active 2011 ovaries in Keily Davenport MD [address], [place], [address], [facility] 2 12:28:00 Insertio n of intraute rine contrace ptive device Completed 201105/26/2021 INSERTIO N OF IUD;Gamaliel rded Elsewher e: No Locat ion: [facility] S ource: EHR Brick Siding Applicator dior: N Practi ce ID: 0001 Buzz lable Time: 01:00:00 PM Keily Davenport MD [address], [place], [address], [facility] 2 12:16:38 Intraute rine contrace ptive device procedur e Completed 201105/26/2021 Insertio n of intraute rine contrace ptive device;P ractice ID: 0001 Keily Davenport MD [address], [place], [address], [facility] 2 12:16:40 Procedur e on genitour inary system Completed 201105/26/2021 Steriliz ation;Re corded Elsewher e: No Locat ion: [facility] S ource: EHR Brick Siding Applicator dior: N Practi ce ID: 0001 Buzz lable Time: 02:00:00 PM Keily Davenport MD [address], [place], [address], [facility] 2 12:17:17 Foreign body granulom a of skin [id number] Completed 201105/26/2021 Foreign body granulom a of skin and subcutan eous tissue;R ecorded Elsewher e: No Locat ion: [facility] S ource: EHR Brick Siding Applicator dior: N Practi ce ID: 0001 Buzz lable Time: 02:00:00 PM Keily Davenport MD [address], [place], [address], [facility] 2 12:16:33 Foreign body in uterus, any part [id number] Completed 201105/26/2021 Foreign body in uterus, any part;Pra ctice ID: 0001 Keily Davenport MD [address], [place], [address], [facility] 2 12:16:36 Removal of intraute rine device Completed 201105/26/2021 REMOVAL OF IUD;Prac yaz ID: 0001 Keily Davenport MD [address], [place], [address], [facility] 2 12:17:02 Oral contrace ptive prescrib ed Completed 201105/26/2021 General counseli ng on prescrip tion of oral contrace ptives;P ractice ID: 0001 Keily Davenport MD [address], [place], [address], [facility] 2 12:16:47 Educatio n Completed 201105/26/2021 Other general counseli ng and advice on contrace ptive manageme nt;Pract ice ID: 0001 Keily Davenport MD [address], [place], [address], [facility] 2 12:16:25 Dysfunct ional uterine bleeding Completed 201105/26/2021 DUB;Prac yaz ID: 0001 Keily Davenport MD [address], [place], [address], [facility] 2 12:15:15 Pregnanc y test negative [id number] Completed 201105/26/2021 Negative Pregnanc y Test;Pra ctice ID: 0001 Keily Davenport MD [address], [place], [address], [facility] 2 12:17:19 Female urinary stress incontin ence [id number] Completed 201105/26/2021 Stress incontin ence, female;P ractice ID: 0001 Keily Davenport MD [address], [place], [address], [facility] 2 12:16:30 Pre-surg jose evaluati on Completed 201105/26/2021 Pre-oper ative examinat ion, unspecif ied;Prac yaz ID: 0001 Keily Davenport MD [address], [place], [address], [facility] 2 12:16:54 Microsco pic hematuri a [id number] Completed 201205/26/2021 HEMATURI A MICROSCO PIC;Prac yaz ID: 0001 Keily Davenport MD [address], [place], [address], [facility] 2 12:16:45 Speciali zed medical examinat ion Completed 201205/26/2021 Routine gynecolo gical examinat ion;Prac yaz ID: 0001 Keily Davenport MD [address], [place], [address], [facility] 2 12:17:14 Screenin g for malignan t neoplasm of cervix Completed 201205/26/2021 Pap Smear;Pr actice ID: 0001 Keily Davenport MD [address], [place], [address], [facility] 2 12:17:04 Screenin g for malignan t neoplasm of rectum Completed 201205/26/2021 Screenin g for malignan t neoplasm s of the rectum;P ractice ID: 0001 Keily Davenport MD [address], [place], [address], [facility] 2 12:17:06 Female genital organ symptoms [id number] Completed 201205/26/2021 Unspecif ied symptom associat ed with female genital organs;P ractice ID: 0001 Keily Davenport MD [address], [place], [address], [facility] 2 12:16:28 Evaluati on finding Completed 201505/26/2021 Oth abn and inconclu sive findings on dx imaging of breast;R ecorded Elsewher e: No Locat ion: [facility] S ource: EHR Brick Siding Applicator dior: N Santiagoti ce ID: 0001 Buzz lable Time: 12:45:08 PM Keily Davenport MD [address], [place], [address], [facility] [address] 12:15:[address] Concept Completed 201605/26/2021 Encntr for general adult medical exam w/o abnormal findings ;Practic e ID: 0001 Keily Davenport MD [address], [place], [address], [facility] [address] 12:17:[address] Concept Completed 201605/26/2021 Encntr for lace sewer exam (general ) (routine ) w/o abn findings ;Practic e ID: [address], [place], [address], [facility] 2 12:17:11 Pelvic and perineal pain [id number] Completed 201605/26/2021 Pelvic pain;Rec orded Elsewher e: No Locat ion: [facility] S ource: EHR Brick Siding Applicator dior: N Practi ce ID: 0001 Buzz lable Time: 02:30:00 PM MD [address], [place], [address], [facility] 2 12:16:52 Menopaus e present [id number] Completed 201805/26/2021 Symptoms such as flushing , sleeples sness, headache , lack of concentr ation, associat ed with natural (age-rel ated) menopaus e;Record ed Elsewher e: No [facility]: EHR Brick Siding Applicator dior: N Santiagoti ce ID: 0001 Buzz lable Time: 10:30:00 AM Keily Davenport MD [address], [place], [address], [facility] 12:16:42 Emotiona l state finding Completed 201805/26/2021 Anxiety depressi on;Recor ded Elsewher e: No Locat ion: Desire guerra [facility] S ource: EHR Brick Siding Applicator dior: N Santiagoti ce ID: 0001 Buzz lable Time: 10:30:00 AM Keily Davenport MD [address], [place], [address], [facility] 12:15:20 Body mass index 40+ - severely obese [id number] Active 2021 Keily Davenport MD [address], [place], [address], [facility] 12:28:07 Essentia l hyperten filipe [id number] Active 2021 Keily Davenport MD [address], [place], [address], [facility] 2 12:28:15 Problem Notes None recorded. Procedures Surgical History Date Name Laterality Status Provider Name and Address Organization Details Recorded Time Date of Last Colonoscopy completed Carol Alvarado [facility] 05/26/2021 12:08:42 11/01/2 021 Date of Last Mammogram completed [facility] 05/26/2021 12:08:24 020 procedure on foot completed [facility] 09/24/2023 12:18:22 019 Date of Last Pap Smear completed [facility] 05/26/2021 12:05:36 017 hemorrhoidectomy completed [facility] 09/24/2023 12:18:33 012 Total Hysterectomy completed [facility] 05/26/2021 12:01:06 012 procedure on urinary bladder completed [facility] 09/24/2023 12:18:14 991 delivery completed [facility] 05/26/2021 12:10:34 985 tonsillectomy completed [facility] 09/24/2023 12:18:05 Imaging Results None recorded. Procedure Notes None recorded. Medical Equipment None Reported. Allergies No known drug allergies Medications Name Sig Start Date Stop Date Status Note LastModified by Organization Details LastModified Time doxycycli ne hyclate 100 mg capsule TAKE 1 CAPSULE BY MOUTH TWICE A DAY 09/23 completed Not Available Not Available Not Available oxybutyni n chloride ER 10 mg tablet,ex tended release 24 hr TAKE 1 TABLET BY MOUTH DAILY 05/26 completed Not Available Not Available Not Available azithromy celina 250 mg tablet TAKE 2 TABLETS BY MOUTH TODAY, THEN TAKE 1 TABLET DAILY FOR 4 DAYS DIRECTED 09/23 completed Not Available Not Available Not Available valacyclo vir 1 gram tablet TAKE 2 TABS BY MOUTH TWICE DAILY FOR 1 DAY THEN STOP NEEDED FOR COLD SORES. active Not Available Not Available No t Available doxycycli ne hyclate 50 mg capsule take 1 capsule by oral route every 12 hours 05/26 completed Prescrib ed Elsewher e: Yes Loca tion: Desire guerra [facility] odify By: deric bradford DateTime : 12/02/19 19 10:30:00 AM Not Available Not Available Not Available Flonase 50 mcg/actua tion nasal spray,nguyen pension spray 1 spray by intranas al route every day in each nostril 05/26 completed Prescrib ed Elsewher e: Yes Loca tion: Desire guerra [facility] odify By: keli butterfielduntmaria a DateTime : 07/26/19 17 02:30:00 PM Not Available Not Available Not Available Zyrtec 10 mg tablet take 1 tablet by oral route every day 05/26 completed Prescrib ed Elsewher e: Yes Loca tion: Desire guerra [facility] odify By: phoebe fine DateTime : 07/16/19 12 02:00:00 PM Not Available Not Available Not Available amlodipin e 5 mg tablet take 1 tablet by oral route every day 05/26 completed Prescrib ed Elsewher e: Yes Loca tion: Desire guerra [facility] odify By: keli butterfielduntmaria a DateTime : 07/26/19 17 02:30:00 PM Not Available Not Available Not Available prochlorp erazine maleate 10 mg tablet take 1 tablet (10MG) by oral route 3 times every day 06/11 completed Prescrib ed Elsewher e: No Locat ion: Desire guerra [facility] odify By: janessa fine DateTime : 10/23/19 12 10:00:00 AM Not Available Not Available Not Available spironola ctone 25 mg tablet take 1 tablet by oral route every day 07/25 completed Prescrib ed Elsewher e: Yes Loca tion: Desire guerra [facility] odify By: keli butterfielduntmaria a DateTime : 06/06/19 12 09:00:00 AM Not Available Not Available Not Available Metrogel Vaginal 0.75 % (37.5 mg/5 gram) insert 1 applicat orful (37.5MG) by vaginal route every day at bedtime 06/11 completed Prescrib ed Elsewher e: No Locat ion: [facility] odify By: janessa fine DateTime : 10/16/19 12 10:00:00 AM Not Available Not Available Not Available amitripty line 25 mg tablet TAKE 1 TABLET BY ORAL ROUTE EVERY DAY AT BEDTIME 09/23 completed Prescrib ed Elsewher e: No Locat ion: [facility] odify By: wally fine DateTime : 12/30/19 19 02:58:29 PM Not Available Not Available Not Available Silvadene 1 % topical cream apply by topical route 2 times every day a 1/16 inch (1.5 mm) thick layer to entire burn area 07/25 completed Prescrib ed Elsewher e: No Locat ion: [facility] odify By: keli newton DateTime : 12/10/19 13 04:45:00 PM Not Available Not Available Not Available amlodipin e 10 mg tablet TAKE 10 MG ORALLY DAILY active Not Available Not Available No t Available benzonata te 100 mg capsule TAKE ONE CAPSULE (100MG) TWICE DAILY NEEDED FOR COUGH 09/23 completed Not Available Not Available Not Available pantopraz ole 40 mg tablet,de layed release TAKE 1 TABLET BY MOUTH EVERY MORNING 09/23 completed Not Available Not Available Not Available prednison e 50 mg tablet TAKE 1 TABLET (50MG) BY MOUTH ONCE DAILY FOR 5 DAYS 09/23 completed Not Available Not Available Not Available codeine 10 mg-guaife nesin 100 mg/5 mL oral liquid TAKE 5 ML ORALLY EVERY 6 HOURS NEEDED FOR COUGH 09/23 completed Not Available Not Available Not Available hydrochlo rothiazid e 25 mg tablet TAKE 1 TABLET BY MOUTH EVERY DAY active Not Available Not Available No t Available methylpre dnisolone 4 mg tablets in a dose pack TAKE 6 TABLETS ON DAY 1 DIRECTED ON PACKAGE AND DECREASE BY 1 TAB EACH DAY FOR A TOTAL OF 6 DAYS 09/23 completed Not Available Not Available Not Available albuterol sulfate HFA 90 mcg/actua tion aerosol inhaler INHALE 1 PUFF FOUR TIMES DAILY NEEDED FOR SHORTNES S OF BREATH OR WHEEZING active Not Available Not Available No t Available losartan 100 mg tablet TAKE 1 TABLET BY MOUTH EVERY DAY active Not Available Not Available No t Available amoxicill in 875 mg-potass ium clavulana te 125 mg tablet TAKE 1 TABLET BY MOUTH EVERY 12 HOURS 09/23 completed Not Available Not Available Not Available Vitamins and Minerals tablet 07/25 completed Prescrib ed Elsewher e: Yes Loca tion: Desire guerra [facility] odify By: keli newton DateTime : 06/06/19 12 09:00:00 AM Not Available Not Available Not Available cyclobenz aprine 5 mg tablet TAKE 1 TABLET BY MOUTH THREE TIMES DAILY NEEDED FOR MUSCLE SPASM active Not Available Not Available No t Available Singulair 4 mg oral granules in packet 05/26 completed Prescrib ed Elsewher e: Yes Loca tion: Desire guerra [facility] odify By: deric Sprague r DateTime : 12/02/19 10:30:00 AM Not Available Not Available Not Available zolpidem ER 6.25 mg tablet,ex tended release,m ultiphase TAKE 1 TABLET BY MOUTH EVERY DAY AT BEDTIME NEEDED FOR INSOMNIA active Not Available Not Available No t Available Calcio Holley 500 mg tablet 07/25 completed Prescrib ed Elsewher e: Yes Loca tion: Desire gurera [facility] odify By: keli newton DateTime : 06/21/19 12 01:00:00 PM Not Available Not Available Not Available losartan 100 mg-hydroc hlorothia zide 12.5 mg tablet take 1 tablet by oral route every day 09/23 completed Prescrib ed Elsewher e: Yes Loca tion: Desire guerra [facility] odify By: deric Sprague r DateTime : 12/02/19 19 10:30:00 AM Not Available Not Available Not Available Pulmicort Flexhaler 180 mcg/actua tion breath activated INHALE 1 PUFF DAILY active Not Available Not Available No t Available amlodipin e besylate (bulk) 100 % powder 10/15 completed Prescrib ed Elsewher e: Yes Loca tion: Desire guerra [facility] odify By: tami fine DateTime : 06/21/19 01:00:00 PM Not Available Not Available Not Available Gemtesa 75 mg tablet TAKE 1 TABLET BY MOUTH AT BEDTIME active Not Available Not Available No t Available Wegovy 0.25 mg/0.5 mL subcutane ous pen injector INJECT 0.25 MG (0.5 ML) SUBCUTAN EOUSLY WEEKLY ADMINIST ER WEEKS 1 THROUGH 4 OF THERAPY active Not Available Not Available No t Available Wegovy 0.5 mg/0.5 mL subcutane ous pen injector active Not Available Not Available Not Available Paxlovid 300 mg (150 mg x 2)-100 mg tablets in a dose pack TAKE 2 TABLETS (NIRMATR LUCIAN) AND TAKE 1 TABLET (RITONAV IR) BY MOUTH TWICE A DAY FOR 5 DAYS 09/23 completed Not Available Not Available Not Available Vitals Date Recorded Body height Body mass index (BMI) Body weight Systolic And Diastolic Provider Name and Address Organization Details Last Updated DateTime 05/26/2021 170.18 cm 40.4 kg/m2 801852.83 g 121/79 mm[Hg] Carol [facility] 05/26/2021 12:05:04 Date Recorded Body height Body mass index (BMI) Body weight Systolic And Diastolic Provider Name and Address Organization Details Last Updated DateTime 09/24/2023 170.18 cm 40.7 kg/m2 748719.02 g 124/82 mm[Hg] [facility] 09/24/2023 12:12:59 Date Recorded Body height Body mass index (BMI) Body weight Systolic And Diastolic Provider Name and Address Organization Details Last Updated DateTime 10/09/2023 170.18 cm 39.9 kg/m2 495675.05 g 122/80 mm[Hg] [facility] 10/09/2023 16:24:27 Date Recorded Body height Body mass index (BMI) Body weight Systolic And Diastolic Provider Name and Address Organization Details Last Updated DateTime 10/22/2023 170.18 cm 39.2 kg/m2 659905.81 g 111/78 mm[Hg] Debra Lovene [facility] 10/22/2023 14:24:57 Social History Question Answer Notes LastModified by Organizat ion Details LastModified Time Tobacco Smoking Status Never Smoker Sera Sánchez diana, [facility] 09/24/2023 12:17:29 In The 14 Days Before Symptom Onset, Have You Had Close Contact With A Laboratory-confirm ed COVID-19 While That Case Was Ill? No Information n ot available 09/24/2023 In The 14 Days Before Symptom Onset, Have You Had Close Contact With A Person Who Is Under Investigation For COVID-19 While That Person Was Ill? No Information not available 09/24/2023 Have You Been To An Area Known To Be High Risk For COVID-19? No Information not available 09/24/2023 Sex: Unknown Functional Status Question Answer Note LastModified by Organizat ion Details LastModified Time What is your level of alcohol consumption? Occasional Information not available 09/24/2023 Mental Status None recorded. Family History Relationship Description Onset Age of this Age Resolved Age Notes LastModified by Organization Details LastModified Time Mother Asthma [email or web address] Not available 12:11:00 Mother Heart disease [email or web address] Not available 2021 12:11:42 Father Heart disease smcaley Not available 2021 12:11:42 Father Hypertensive disorder smcaley Not available 2021 12:14:23 Maternal Grandmother Heart disease smcaley Not available 2021 12:11:42 Maternal Grandfather Heart disease smcaley Not available 2021 12:11:42 Notes:Brother: Asthma Father : skin cancer, kidney, Cancer, bladder, COPD Maternal grandfather: Cancer, colon, Hypertension, Cancer, lung Mother: Cancer, breast, Asthma, Hypertension, clotting disorder, Cancer, kidney Paternal grandfather: Cancer, lung Paternal grandmother: Coronary artery disease Sister: clotting disorder, pulmonary embolism Medical History Condition Response Allergies (Food, seasonal, environmental ) N Other N Breast Cancer N Drug/Latex Allergies/Reactions N Blood Transfusion N Dermatologic Disorders N Lung Disease N Defects or Inherited Disease N Breast Problem N Gestational Diabetes N Hematologic disorders N Anesthesia Complications N History of STI N Deep Vein Thrombosis Y Polycystic ovary syndrome N Anxiety Disorder N Autoimmune disease N Arthritis N Infertility N Polyps N Acid Reflux (GERD) Y History of abnormal pap N Cancer N Stroke N Varicosities N Neurologic/Epilepsy N Endometriosis N High Cholesterol Y Headaches N Fibromyalgia N Kidney Disease N Heart Problems N Kidney or Bladder Problems N Thyroid Problems N GI Problems N Eating Disorder N Anemia N Art (IVF or FET) N Psychiatric Illness N Ovarian Cancer N Diabetes N Pulmonary (TB, Asthma) N Hepatitis/Liver Disease N No Past Medical History N Eczema N Urinary Tract Infection N Abuse/Domestic Violence N Asthma N Trauma/Violence N Depression/ depression N Heart Disease N Pre-Eclampsia N Hypertension Y Osteoporosis N Thrombophilias N Gynecological History Statement/Question Response Abnormal Pap N Date of Last Mammogram 01/23/2021 On BCP's at Conception? N STIs/STDs N HPV Vaccine N Colposcopy Current Control Method Hysterectom y Age at First Child 25 Date of Last Colonoscopy 02/22/2021 Sexually Active? Y Date of DEXA bone scan Age of first menstrual cycle 9 Date of Last Pap Smear 12/01/2018 Sexual Problems? N Obstetrics History GPAL:G 5 P 4 1 0 5 Type Value Full Term 4 Premature 1 Living 5 Total 5 Past Encounters Encounter ID Performer Location Encounter Start Date Encounter Closed Date Diagnosis/Indication Diagnosis SNOMED-CT Code Diagnosis ICD10 Code Diagnosis IMO Codes Diagnosis Note [id number] Keily Davenport MD [place] [address] [address] 05/26/2021 11:51:10 05/26/2021 12:45:01 Body mass index 40+ - severely obese 071145713 Z68.41 Gynecologi c examination 73704177 Z01.419 [id number] ROWAN Crowley [place] [address],[place] [address] 09/24/2023 11:56:10 09/24/2023 14:52:12 Gynecologic examination [id number] Z01.419 WWEdecline d STI screenmamm ogram order givendexa at 60 unless otherwise indicatedr outine labs/PCP Do monthly self breast exams. It is advised to get annual flu shot in the fall and she could obtain at local pharmacy. If you haven't received the Tdap vaccine in the last 10 years you should obtain one as well. Have mammogram yearly and stay UTD on colon CA screening. Engage in regular exercise. Avoid tobacco and illicit drugs. This lifestyle behavior pattern will lead to less health conditions and longer life span. If BMI greater than 25 dietary consult advised. Questions have been answered. Patient appears to understand instructio ns, but if you have any further questions call or respond to this email Pain in axilla [id number] M79.629 bilateral diagnostic mammogram w. left axillary u/s ordered Postmenopa usal bleeding 49323785 N95.0 no bleeding seen on exam todaypap updatedvag inal atrophy notedwill update pelvic u/s since ovaries remainretu rn for pelvic u/s and f/u Time spent in visit is a total of 30 mins with at least 50% of visit consisting of counseling and review of plan of care. [id number] Robby Palafox MD [place] [address],[place] [address] 09/30/2023 12:18:19 09/30/2023 12:57:45 Postmenopausal bleeding 88381657 N95.0 [id number] ROWAN Crowley [place] [address],[place] [address] 10/09/2023 16:19:59 10/09/2023 17:09:59 Postmenopausal bleeding 08468985 N95.0 reviewed pelvic u/s - normal findingssh e has not had any additional episodes of bleedingve g based moisturize r routine discussedn otify office if symptoms returnques tions answered Time spent in visit is a total of 15 mins with at least 50% of visit consisting of counseling and review of plan of care. [id number] KANDACE CEJA MD [place] [address],[place] [address] 10/22/2023 14:14:43 10/22/2023 15:29:33 Screening for malignant neoplasm of cervix [id number] Z12.4 - repeat pap smear obtained today- will follow up on results as available- discussed that given total hysterecto my with no cervical malignancy , patient does not need to continue pap smear screening Health Concerns Section Related Observation LastModified by Organization Detai ls LastModified Time None Recorded Concern Status LastModified by Organization Details LastModified Time None Recorded Advance Directives Directive None Recorded Payers Insurance Date Sequence Insurance Name Policy Number Policy [place] Covered Member ID [place] Member ID Guarantor Name 10/21/2023 1 [place] [id number] Juvenal Andre [id number] Nayely Andre Notes Date Note Type Note Provider Name and Address Organization Details Recorded Time 2 text/html Patient is a 55yo who presents for an annual exam. TVH in 2011, ovaries in, done for bleeding. mammo-01/2021 colonoscopy-02/2021, 10 years dexa-normal in 2010 after fracture sexually active-y seatbelts-y exercise-no, encourgaged depression-denies domestic violence-denies tobacco-n concerns- Keily Davenport MD [address], [place], [address], [facility] 05/26/2021 12:32:19 4 text/html Annual [employer] Post-MenopausalReported by PatientGenitourinary symptomsFor menopausal symptoms, patient reportsno menopausal symptomsandnormal vaginal lubrication. For vaginal bleeding, patient reportshistory of menopause having occurredandno history of post menopausal bleeding. For urinary symptoms, patient reportsno hematuria,no incontinence,no nocturia, andno urinary frequency. For vulva, patient reportsno genital lesionandno vulvar atrophy. For vagina, patient reportsnormal vaginal dischargeandno vaginal atrophy.Breast symptomsFor breast, patient reportsno breast lump,no nipple discharge, andno breast pain.Psychological symptomsFor sexual complaints, patient reportsno sexual complaints. For psychological symptoms, patient reportsno depressionandno anxiety.Preventative measuresFor preventive measures, patient reportsencourage regular mammograms starting age 40,encourage self breast examination,encourage regular exercise,encourage no tobacco use, andmammogram performed within the past year.58yo WWEh/o TVH, ovaries remain - in 2011 for AUBh/o LEEP around 29 yrs agoSA with steady male partners mammogram olonoscopy 2020 left axillary tenderness, comes and goes, no lumps/masses noticed spotting when wiping about 1 month ago, occurred 4 timeshas not noticed any vaginal irritation/itching/odors/ drynesshas not noticed blood in the urine, no blood in her stoolsneg pelvic painneg n/v/fneg flu-like symptoms ROWAN Crowley [address], [place], [address], [facility] 09/24/2023 14:18:38 4 text/html 58yopresents for u/s f/uhas not had any additional bleedingrecently saw her urologist and did not have any hematuria on UA per pt ROWAN Crowley [address], [place], [address], [facility] 10/09/2023 17:08:12 4 text/html Patient presents for repeat pap smear. Last sample lost. KANDACE CEJA MD [address], [place], [address], [facility] 10/22/2023 15:01:08 OBGyn Episode Ob Episode Information Episode Created Date Number of Fetuses Patient Bloodtype Patient rh Status Prepregnancy Weight lbs Domestic Partner Domestic Partner Phone Father Name Inspector Packer Status 05/27/19 22 1 CLOSED Fetus Data First Name Last Name Admitted to NICU Weight (g) Sex Living Outcome Pediatric Complications Fetus ID Race Codes Race Delivery Type 963.883 F Prematur e [id number] Vaginal Delivery Tray Calculation Initial Tray Date Initial Exam Date Initial Exam Provider Initial Ultrasound Date Last Menstrual Period Date Ultra Sound Weeks Gestation 0 Eighteen To Twenty Week Tray Update Ultra Sound Date Fundal Height At Umbil Quickening Date Ultra Sound Latest Weeks Gestation Final Tray Confirmed By Final Tray Confirmed Date Final Tray Date Ultra Sound Latest Days Gestation 0 0 Menstrual History Last Menstrual Date Menses Monthly On Bcp Conception Prior Menses Frequency Hcg Plus Date Menarche Onset Age Delivery Information Delivery Date Delivery Type Labor Anesthesia Weeks Gestation Incision Type Labor Labor Length Hrs Delivered By Post Complications Tubal Sterilization Discharge Date Comments 0 2 Discharge Information Feeding Method Contraceptive Method Maternal HG B and HCT Levels Ob Episode Information Episode Created Date Number of Fetuses Patient Bloodtype Patient rh Status Prepregnancy Weight lbs Domestic Partner Domestic Partner Phone Father Name Inspector Packer Status 05/27/19 22 1 CLOSED Fetus Data First Name Last Name Admitted to NICU Weight (g) Sex Living Outcome Pediatric Complications Fetus ID Race Codes Race Delivery Type 3883.65 4704 M Full Term [id number] Primary Tray Calculation Initial Tray Date Initial Exam Date Initial Exam Provider Initial Ultrasound Date Last Menstrual Period Date Ultra Sound Weeks Gestation 0 Eighteen To Twenty Week Tray Update Ultra Sound Date Fundal Height At Umbil Quickening Date Ultra Sound Latest Weeks Gestation Final Tray Confirmed By Final Tray Confirmed Date Final Tray Date Ultra Sound Latest Days Gestation 0 0 Menstrual History Last Menstrual Date Menses Monthly On Bcp Conception Prior Menses Frequency Hcg Plus Date Menarche Onset Age Delivery Information Delivery Date Delivery Type Labor Anesthesia Weeks Gestation Incision Type Labor Labor Length Hrs Delivered By Post Complications Tubal Sterilization Discharge Date Comments 1 40 Discharge Information Feeding Method Contraceptive Method Maternal HG B and HCT Levels Ob Episode Information Episode Created Date Number of Fetuses Patient Bloodtype Patient rh Status Prepregnancy Weight lbs Domestic Partner Domestic Partner Phone Father Name Inspector Packer Status 05/27/19 22 1 CLOSED Fetus Data First Name Last Name Admitted to NICU Weight (g) Sex Living Outcome Pediatric Complications Fetus ID Race Codes Race Delivery Type 3628.73 6 F Full Term [id number] Vaginal Delivery Tray Calculation Initial Tray Date Initial Exam Date Initial Exam Provider Initial Ultrasound Date Last Menstrual Period Date Ultra Sound Weeks Gestation 0 Eighteen To Twenty Week Tray Update Ultra Sound Date Fundal Height At Umbil Quickening Date Ultra Sound Latest Weeks Gestation Final Tray Confirmed By Final Tray Confirmed Date Final Tray Date Ultra Sound Latest Days Gestation 0 0 Menstrual History Last Menstrual Date Menses Monthly On Bcp Conception Prior Menses Frequency Hcg Plus Date Menarche Onset Age Delivery Information Delivery Date Delivery Type Labor Anesthesia Weeks Gestation Incision Type Labor Labor Length Hrs Delivered By Post Complications Tubal Sterilization Discharge Date Comments 5 40 Discharge Information Feeding Method Contraceptive Method Maternal HG B and HCT Levels Ob Episode Information Episode Created Date Number of Fetuses Patient Bloodtype Patient rh Status Prepregnancy Weight lbs Domestic Partner Domestic Partner Phone Father Name Inspector Packer Status 05/27/19 22 1 CLOSED Fetus Data First Name Last Name Admitted to NICU Weight (g) Sex Living Outcome Pediatric Complications Fetus ID Race Codes Race Delivery Type 4195.72 6 M Full Term [id number] Vaginal Delivery Tray Calculation Initial Tray Date Initial Exam Date Initial Exam Provider Initial Ultrasound Date Last Menstrual Period Date Ultra Sound Weeks Gestation 0 Eighteen To Twenty Week Tray Update Ultra Sound Date Fundal Height At Umbil Quickening Date Ultra Sound Latest Weeks Gestation Final Tray Confirmed By Final Tray Confirmed Date Final Tray Date Ultra Sound Latest Days Gestation 0 0 Menstrual History Last Menstrual Date Menses Monthly On Bcp Conception Prior Menses Frequency Hcg Plus Date Menarche Onset Age Delivery Information Delivery Date Delivery Type Labor Anesthesia Weeks Gestation Incision Type Labor Labor Length Hrs Delivered By Post Complications Tubal Sterilization Discharge Date Comments 2 40 Discharge Information Feeding Method Contraceptive Method Maternal HG B and HCT Levels Ob Episode Information Episode Created Date Number of Fetuses Patient Bloodtype Patient rh Status Prepregnancy Weight lbs Domestic Partner Domestic Partner Phone Father Name Inspector Packer Status 05/27/19 22 1 CLOSED Fetus Data First Name Last Name Admitted to NICU Weight (g) Sex Living Outcome Pediatric Complications Fetus ID Race Codes Race Delivery Type 3628.73 6 M Full Term [id number] Vaginal Delivery Tray Calculation Initial Tray Date Initial Exam Date Initial Exam Provider Initial Ultrasound Date Last Menstrual Period Date Ultra Sound Weeks Gestation 0 Eighteen To Twenty Week Tray Update Ultra Sound Date Fundal Height At Umbil Quickening Date Ultra Sound Latest Weeks Gestation Final Tray Confirmed By Final Tray Confirmed Date Final Tray Date Ultra Sound Latest Days Gestation 0 0 Menstrual History Last Menstrual Date Menses Monthly On Bcp Conception Prior Menses Frequency Hcg Plus Date Menarche Onset Age Delivery Information Delivery Date Delivery Type Labor Anesthesia Weeks Gestation Incision Type Labor Labor Length Hrs Delivered By Post Complications Tubal Sterilization Discharge Date Comments 8 39 Discharge Information Feeding Method Contraceptive Method Maternal HG B and HCT Levels
--- NOTE | 2025-03-16 13:16 | PC.NURSE ---
pt walked up to triage desk and said I cant wait here anymore and ambulated out with a steady gait
--- OUTSIDE RECORDS SUMMARY | 2025-03-16 13:23 | XMS_ITS | Clinical Summary ---
Author Organization [facility] Address [address] [place] [address] Care Team Providers Care Hydrator Operator Name Role Phone Rolo Cadena MD Primary [...] on file Legal Sex Female 8:14 AM FLIGHT TOWER DISPATCHER Gender Identity Not on file Sexual Orientation Not on file Last Filed Vital Signs Vital Sign Reading Time Taken Comments Blood Pressure 124/89 03/23/2023 9:28 AM FLIGHT TOWER DISPATCHER Pulse 91 03/23/2023 9:28 AM FLIGHT TOWER DISPATCHER Temperature 36.5 C (97.7 F) 03/23/2023 9:28 AM FLIGHT TOWER DISPATCHER Respiratory Rate 14 03/23/2023 9:28 AM FLIGHT TOWER DISPATCHER Oxygen Saturation 98% 03/23/2023 9:28 AM FLIGHT TOWER DISPATCHER Inhaled Oxygen Concentration - - Weight 113.4 kg (250 lb) 04/07/2020 7:35 AM FLIGHT TOWER DISPATCHER Height 172.7 cm (5' 8) 03/23/2023 9:28 AM FLIGHT TOWER DISPATCHER Body Mass Index 38.01 04/07/2020 7:35 AM FLIGHT TOWER DISPATCHER Plan of Treatment Health Maintenance Due Date [...] patient's age to complete this topic Insurance [facility] OPEN ACCESS [place] ACCESS OOS inD[employer]ero OOS Care Teams Hydrator Operator Relationship Specialty Start Date End Date Rolo Cadena MD [address] [address] PCP - General 04/07/20
== END 2025-03-16 13:38 | disposition left against medical advice (07) ==
PROVIDERS: Emergency Provider Emergency Medicine; PCP Family Medicine
DX: M54.2 Cervicalgia (principal)
CPT/HCPCS: 93005; 99199